=== PATIENT | male | born 1970 | race Caucasian/White ===

== ENCOUNTER 2022-06-08 06:48 | Inpatient (IN) | payer MEDICAID ==
[~2022-06-08] VITALS: Ht 172.7 cm; Wt 85.7 kg
[2022-06-08] VITALS (9 sets, daily range): BP systolic 110–122; BP diastolic 66–81
--- NOTE | 2022-06-08 06:57 | NUR ---
[id number] FROM [facility], FOUND MORE ALTERED THEN USUAL. TEMP: 101 TACHYCARDIC 121. PATIENT NON VERBAL RESPONSIVE TO SOME PAINFUL STIMULI, IN BED 06 ON MONITOR AND POX AWAITING MD HEBERT.
--- NOTE | 2022-06-08 07:01 | NUR ---
EMT AT BEDSIDE FOR EKG
--- NOTE | 2022-06-08 07:07 | NUR ---
BLOOD AND CULTURES COLLECTED AND SENT TO LAB
--- NOTE | 2022-06-08 07:07 | NUR ---
COVID SWAB DONE AND SENT TO LAB
--- NOTE | 2022-06-08 07:09 | NUR ---
URINE COLLECTED AND SENT TO LAB
[2022-06-08] MEDS ORDERED: CEFTRIAXONE 1GM BAG (ER ONLY) 50 ML IV ONE ×2 (07:10→07:30)
--- NOTE | 2022-06-08 07:13 | NUR ---
IV ESTABLISHED RAC #18G S/L ; PATENT AND INTACT
[2022-06-08 07:22] LABS: BASOPHILS % (AUTO) 0.1 % (0.0-2.0); EOSINOPHILS % (AUTO) 1.3 % (0.0-6.0); HEMATOCRIT 26 % (39-51); HEMOGLOBIN 9.1 g/dL (13.5-17.5); LYMPHOCYTES # (AUTO) 0.2 K/uL (0.8-4.8); LYMPHOCYTES % (AUTO) 2.1 % (20.0-44.0); MEAN CORPUSCULAR HGB CONC 35 g/dl (31.0-36.0); MEAN CORPUSCULAR VOLUME 119 fL (80-96); MONOCYTES # (AUTO) 0.6 K/uL (0.1-1.30); MONOCYTES % (AUTO) 6.3 % (2.0-12.0); NEUTROPHILS # (AUTO) 8.5 K/uL (1.8-8.9); NEUTROPHILS % (AUTO) 90.2 % (43.0-81.0); PLATELET COUNT (AUTO) 77 K/uL (150-450); RED BLOOD CELL COUNT(AUTO) 2.19 MIL/uL (4.5-6.0); WHITE BLOOD COUNT (AUTO) 9.4 K/uL (4.3-11.0)
[2022-06-08 07:24] LABS: BILIRUBIN,URINE SMALL (NEGATIVE); COLOR,URINE ORANGE (YELLOW); LEUKOCYTE ESTERASE ,URINE LARGE (NEGATIVE); NITRITE, URINE POSITIVE (NEGATIVE); PROTEIN,URINE >=300 mg/dl (NEGATIVE); UGLUCOSE NEGATIVE (NEGATIVE)
[2022-06-08 07:29] LABS: PH,URINE >8.5 (5.0-8.0)
[2022-06-08] MEDS ORDERED: IV NS 0.9% 1,000 ML BAG IV ONE (07:30)
[2022-06-08 07:36] LABS: RBC,URINE TOO NUMEROUS TO COUN /HPF (0-2); WBC,URINE TOO NUMEROUS TO COUN /HPF (0-3)
[2022-06-08 07:37] LABS: BACTERIA,URINE 1+ /HPF (None Seen); SQUAMOUS EPITHELIAL CELL,UR Few /HPF (None Seen)
[2022-06-08 07:43] LABS: ALANINE AMINOTRANSFERASE 79 U/L (12-78); ALCOHOL, BLOOD < 3 mg/dL (0-0); ALKALINE PHOSPHATASE 87 U/L (46-116); ASPARTATE AMINOTRANSFERASE 96 U/L (15-37); BILIRUBIN,DIRECT 2.8 mg/dL (0.0-0.2); BILIRUBIN,TOTAL 3.6 mg/dL (0.2-1.0); CALCIUM, SERUM 7.9 mg/dL (8.5-10.1); CARBON DIOXIDE 12 mmol/L (21-32); CHLORIDE 96 mmol/L (98-107); GLUCOSE 94 mg/dL (74-106); POTASSIUM 5.8 mmol/L (3.5-5.1); SODIUM SERUM 124 mmol/L (136-145); TOTAL PROTEIN, SERUM 6.4 g/dL (6.4-8.2); UREA NITROGEN, BLOOD 66 mg/dL (7-18)
[2022-06-08 07:49] LABS: CREATININE 3.5 mg/dL (0.6-1.3); SERUM AMMONIA 120 umol/L (11-32)
[2022-06-08 07:50] LABS: THYROID STIMULATING HORMONE 2.119 uIU/mL (0.358-3.74)
[2022-06-08 07:59] LABS: ALBUMIN 1.4 g/dL (3.4-5.0)
[2022-06-08] MEDS ORDERED: FINA5TAB11 PO (08:30)
[2022-06-08] MEDS ORDERED: SENN-18 PO (08:30)
[2022-06-08] MEDS ORDERED: DOCU-141 PO (08:30)
[2022-06-08] MEDS ORDERED: LEVO137T24 PO (08:30)
[2022-06-08] MEDS ORDERED: FOLI0.8T2 PO (08:30)
[2022-06-08] MEDS ORDERED: LACT10SO3 PO (08:30)
[2022-06-08] MEDS ORDERED: THIA100T74 PO (08:30)
[2022-06-08] MEDS ORDERED: SODI100037 GT (08:30)
[2022-06-08] MEDS ORDERED: FOLI0.4T6 PO (08:30)
[2022-06-08] MEDS ORDERED: TAMS-12 PO (08:30)
--- NOTE | 2022-06-08 08:31 | NUR ---
PT TAKEN TO RADIOLOGY
--- NOTE | 2022-06-08 08:54 | NUR ---
called nursing sup regarding pt bed
[2022-06-08 08:59] LABS: BAND % (MANUAL) 10 % (0.0-5.0); LYMPHOCYTES % (MANUAL) 0 % (16-48); MONOCYTES % (MANUAL) 2 % (0-11.0); NEUTROPHILS % (MANUAL) 88 (42-76)
[2022-06-08] MEDS ORDERED: Z GUARD REMEDY 4 OZ OINT TP PRN (09:30)
[2022-06-08] MEDS ORDERED: MAGNESIUM HYDROXIDE 30 ML UDC PO PRN (09:30)
[2022-06-08] MEDS ORDERED: ONDANSETRON HCL/PF 4 MG/2 ML VIAL IVP PRN (09:30)
[2022-06-08] MEDS ORDERED: SODIUM BICARBONATE SYR 50 MEQ/50 ML DISP.SYRIN IV ONE ×2 (09:30→16:00)
[2022-06-08] MEDS ORDERED: MAG HYDROX/AL HYDROX/SIMETH 30 ML UDC PO PRN (09:30)
--- NOTE | 2022-06-08 09:56 | NUR ---
PT SEEN BY [facility], FOR SWALLOW EVAL; PT UNABLE TO PARTICIPATE FOR EVAL.
--- NOTE | 2022-06-08 10:08 | NUR ---
ROOM [facility]
--- NOTE | 2022-06-08 10:20 | NUR ---
PT SEEN BY DR. TESFAYE W/ ORDER FOR ABG NOTED; RT MADE AWARE.
[2022-06-08 10:46] LABS: ABG BASE EXCESS -11.2 mmol/L; ABG PCO2 17.3 mmHg (35.0-45.0); ABG PH 7.434 (7.350-7.450); ABG PO2 79.4 mmHg (75.0-100.0); COHb 0.3 % (0.5-1.5); MetHb 0.3 % (0.0-1.5); O2Hb 94.6 % (94.0-97.0); SITE, ABG Right Radial; VENT MODE, BG Room Air
--- NOTE | 2022-06-08 10:55 | NUR ---
PER DR. TESFAYE, PT NEEDS TO BE ROUTED TO ICU.
[2022-06-08] MEDS: DEXAMETHASONE SOD PHOSPHATE 10 MG/ML VIAL IV SCH (11:29)
[2022-06-08] MEDS ORDERED: DEXAMETHASONE SOD PHOSPHATE 10 MG/ML VIAL ONE (11:29)
[2022-06-08] MEDS ORDERED: SODIUM BICARBONATE SYR 50 MEQ/50 ML DISP.SYRIN ONE (11:35)
[2022-06-08 12:46] LABS: CALCIUM, SERUM 7.6 mg/dL (8.5-10.1); CREATININE 3.2 mg/dL (0.6-1.3); POTASSIUM 5.5 mmol/L (3.5-5.1)
--- NOTE | 2022-06-08 12:58 | NUR ---
BED GIVEN 256 AFTER 1330
[2022-06-08] MEDS: LACTULOSE 10 G/15 ML UDC (PYXIS) PO SCH ×2 (13:00→17:34)
--- NOTE | 2022-06-08 13:46 | NUR ---
PT REPORT GIVEN TO GM SILVA.
[2022-06-08] MEDS ORDERED: VANCOMYCIN 1.25 GM in IV D5W 250 ML IV ONE (14:00)
[2022-06-08] MEDS ORDERED: CEFEPIME 2 GM in IV D5W 100 ML IV SCH (14:00)
--- NOTE | 2022-06-08 14:00 | NUR ---
RN NOTE PT RECEIVED FROM ED STABLE AT THIS TIME REPORT RECEIVED FROM GM OG. PT IS A/OX1 RESPONSIVE ONLY TO LIGHT AND DEEP PAIN. PT IS ON RA SAT 98% TOLERATING WELL NO SIGNS OF DISTRESS OR LABORED BREATHING. FC IS IN PLACE DRAINING URINE TO GRAVITY: HEMATURIA. 1 BOWEL MOVEMENT. IV ACCESS R FA 18G AND L ABDUL 18G. PT PLACED ON TELEMONITOR AND NG TUBE INSERTED AT THIS TIME. PICTURES OF WOUNDS TAKEN AND PLACED IN CHART. WILL CONTINUE TO MONITOR THIS SHIFT.
--- NOTE | 2022-06-08 14:13 | NUR ---
PT TRANSFERRED TO [address] [facility] ACLS PROTOCOL. WARM HANDOFF GIVEN TO GM SILVA.
[2022-06-08 14:59] LABS: ABG BASE EXCESS -9.9 mmol/L; ABG OXYGEN SATURATION 95.5 % (92.0-98.5); ABG PCO2 19.3 mmHg (35.0-45.0); ABG PH 7.436 (7.350-7.450); ABG PO2 81.5 mmHg (75.0-100.0); AaDO2 45.1 mmHg; COHb 0.1 % (0.5-1.5); MetHb 0.2 % (0.0-1.5); O2Hb 95.2 % (94.0-97.0); SITE, ABG Right Radial; VENT MODE, BG ROOM AIR
[2022-06-08] MEDS ORDERED: IV NS 0.9% 250 ML IV PRN (15:00)
--- NOTE | 2022-06-08 15:00 | NUR ---
G ON RA RESULTED TO DR. TESFAYE-NO CHANGES PER MD.
[2022-06-08] MEDS: IV NS 0.9% 1,000 ML IV PRN (15:09)
--- NOTE | 2022-06-08 16:31 | NUR ---
NOTIFIED GM SILVA @ EXT. [phone] THAT US GUIDED PARACENTESIS WILL GET DONE ON FRIDAY PER HEAD OF DIGITAL ADVERTISING & INTEGRATION RAD DR. VITALE
--- NOTE | 2022-06-08 18:59 | NUR ---
RN CLOSING NOTE PT IS IN BED WITH HOB >30. PT IS A/OX1 RESPONSIVE ONLY TO LIGHT AND DEEP PAIN. PT IS ON RA SAT 98% TOLERATING WELL NO SIGNS OF DISTRESS OR LABORED BREATHING. FC IS IN PLACE DRAINING URINE TO GRAVITY -1200ML AND NG IS IN PLACE CLAMPED AND FOR MEDS ONLY AT THIS TIME. 1 BOWEL MOVEMENT. IV ACCESS R AC 18G AND L ABDUL 18G INFUSING WITH NS@90ML/HR. WILL ENDORSE TO DIP UNIT OPERATOR NURSE FOR COREY.
--- NOTE | 2022-06-08 19:10 | NUR ---
RN NOTES RECEIVED REPORT FROM MORNING RN. PATIENT IN BED A/O X0 RESPONSIVE TO TACTILE STIMULI. ON ROOM AIR SATING 94%. WITH NGT INTACT FOR MEDICATION ADMINISTRATION. PATIENT ON NPO EXCEPT MEDS. WITH IV ACCESS AT R AC#18, L AC #18 PATENT FLUSHES WELL. ON IVF NS@ 90CC/HR. WITH MCKEON CATHETER CONNECTED TO URINE BAG DRAINING WELL. ALL SAFETY MEASURES IN PLACE AT ALL TIMES. HOB ELEVATED. CALL LIGHT WITHIN REACH. WILL CLOSELY MONITOR THE PATIENT
[2022-06-08] MEDS: FINASTERIDE (5 MG) 5 MG TABLET PO SCH ×2 (21:32→22:00)
[2022-06-08] MEDS: TAMSULOSIN 0.4 MG CAP.SR.24H PO SCH ×2 (21:32→22:00)
[2022-06-08] MEDS: SENNOSIDES 8.6 MG TABLET PO SCH ×2 (21:32→22:00)
[2022-06-08] MEDS ORDERED: ZOLPIDEM TARTRATE 5 MG TABLET PO PRN (22:00)
--- NOTE | 2022-06-08 22:45 | NUR ---
RN NOTES ALL MEDICATION VIA NGT HELD DUE TO 300 CC GASTRIC RESIDUAL OF COFFEE GROUND. DR LEACH INFORMED. WITH ORDER TO PUT PATIENT ON CONTINUOUS SUCTION.
[2022-06-09] VITALS (25 sets, daily range): BP systolic 101–131; BP diastolic 63–76
[2022-06-09] MEDS: IV NS 0.9% 1,000 ML IV PRN ×2 (01:57→20:17)
[2022-06-09 05:45] LABS: BASOPHILS % (AUTO) 0.1 % (0.0-2.0); EOSINOPHILS % (AUTO) 3.9 % (0.0-6.0); HEMATOCRIT 23 % (39-51); HEMOGLOBIN 8.2 g/dL (13.5-17.5); LYMPHOCYTES # (AUTO) 0.4 K/uL (0.8-4.8); LYMPHOCYTES % (AUTO) 6.8 % (20.0-44.0); MEAN CORPUSCULAR HGB CONC 35 g/dl (31.0-36.0); MEAN CORPUSCULAR VOLUME 119 fL (80-96); MONOCYTES # (AUTO) 0.4 K/uL (0.1-1.30); MONOCYTES % (AUTO) 6.1 % (2.0-12.0); NEUTROPHILS # (AUTO) 5.4 K/uL (1.8-8.9); NEUTROPHILS % (AUTO) 83.1 % (43.0-81.0); PLATELET COUNT (AUTO) 60 K/uL (150-450); WHITE BLOOD COUNT (AUTO) 6.4 K/uL (4.3-11.0)
[2022-06-09 05:54] LABS: CALCIUM, SERUM 7.3 mg/dL (8.5-10.1); CREATININE 2.3 mg/dL (0.6-1.3); MAGNESIUM 2.1 mg/dL (1.8-2.4); PHOSPHORUS 4.7 mg/dL (2.5-4.9); POTASSIUM 4.3 mmol/L (3.5-5.1); RED BLOOD CELL COUNT(AUTO) 1.95 MIL/uL (4.5-6.0); TOTAL PROTEIN, SERUM 5.5 g/dL (6.4-8.2)
[2022-06-09 06:01] LABS: ALBUMIN 1.2 g/dL (3.4-5.0)
--- NOTE | 2022-06-09 06:56 | NUR ---
RN NOTES PATIENT STILL ON ROOM AIR SATING 96%. WITH IV ACCESS AT LAC, R AC G18 PATENT FLUSHES WELL STILL ON NS@90CC/HR. WITH NGT ON CONTINUOS LOW SUCTION WITH 800CC COFFEE GROUND. WITH MCKEON CONNECTED TO URINE BAG DRAINING DARK YELLOW URINE. ALL SAFETY MEASURE IN PLACE AT ALL TIMES. HOB ELEVATED. CALL LIGHT WITHIN REACH FREQUENT VISUAL MONITORING RENDERED. ALL ISOLATION PRECAUTION IN PLACE AT ALL TIMES. WILL ENDORSE TO MORNING SHIFT FOR COREY
[2022-06-09 07:27] LABS: BAND % (MANUAL) 3 % (0.0-5.0); LYMPHOCYTES % (MANUAL) 6 % (16-48); MONOCYTES % (MANUAL) 4 % (0-11.0); NEUTROPHILS % (MANUAL) 87 (42-76)
[2022-06-09] MEDS: THIAMINE HCL 100 MG TABLET PO SCH (08:32)
[2022-06-09] MEDS: FOLIC ACID 1 MG TABLET PO SCH (08:32)
[2022-06-09] MEDS: DOCUSATE SODIUM 100 MG CAPSULE PO SCH (08:32)
[2022-06-09] MEDS: LEVOTHYROXINE SODIUM 25 MCG TABLET PO SCH (08:32)
[2022-06-09] MEDS: LACTULOSE 10 G/15 ML UDC (PYXIS) PO SCH ×3 (08:32→17:33)
[2022-06-09] MEDS: DEXAMETHASONE SOD PHOSPHATE 10 MG/ML VIAL IV SCH (08:32)
[2022-06-09] MEDS ORDERED: PANTOPRAZOLE 40 MG VIAL IV SCH (09:00)
--- NOTE | 2022-06-09 09:39 | NUR ---
ICU/RN NOTE PATIENT'S MEDICATION MAXIPIME/CEFEPIME NOT GIVEN ON TIME DUE TO IT NOT BEING HERE. I CALLED THE PHARMACY AND THE DELIVERED IT NOW. MEDICATION WILL BE GIVEN ACCORDING TO ORDER.
[2022-06-09] MEDS: CEFEPIME 2 GM in IV D5W 100 ML IV SCH ×2 (09:41→21:25)
[2022-06-09] MEDS ORDERED: VANCOMYCIN HCL 0.75 GM in IV D5W 250 ML IV SCH (10:00)
[2022-06-09] MEDS ORDERED: CEFTRIAXONE 1 G in IV D5W 50 ML IV SCH (10:00)
[2022-06-09] MEDS ORDERED: REMDESIVIR (CHARGED) 200 MG, *LOADING DOSE 1 EA in IV NS 0.9% 210 ML IV ONE (11:00)
[2022-06-09] MEDS ORDERED: OCTREOTIDE 1,250 MCG in IV NS 0.9% 247.5 ML IV PRN (13:00)
[2022-06-09 15:31] LABS: HEMOGLOBIN 7.9 g/dL (13.5-17.5)
[2022-06-09 15:45] LABS: ABG OXYGEN SATURATION 94.4 % (92.0-98.5); ABG PCO2 23.1 mmHg (35.0-45.0); ABG PO2 74.1 mmHg (75.0-100.0); COHb 0.2 % (0.5-1.5); MetHb 0.2 % (0.0-1.5); SITE, ABG Right Radial; VENT MODE, BG RA
--- NOTE | 2022-06-09 19:30 | NUR ---
RN OPENING NOTE RECEIVED PATIENT IN BED A/O X1 RESPONSIVE/CONFUSED. ON ROOM AIR SATING 100%. WITH NGT INTACT. PATIENT ON NPO EXCEPT MEDS, BUT WITH CONTINUOUS SUCTION. IV ACCESS AT R AC#18, L AC #18 PATENT FLUSHES WELL. ON IVF NS@ 50ML/HR. WITH MCKEON CATHETER DRAINING YELLOW/MARLENI URINE. ALL SAFETY MEASURES IN PLACE AT ALL TIMES. HOB ELEVATED. CALL LIGHT WITHIN REACH. WILL CLOSELY MONITOR THE PATIENT
--- NOTE | 2022-06-09 19:31 | NUR ---
ICU/RN CLOSING NOTE REPORT GIVEN TO NIGHT NURSE. ALL CARE ENDORSED AND QUESTIONS ANSWERED. PATIENT STABLE.
--- NOTE | 2022-06-09 20:10 | NUR ---
RN NOTE HEATING MEASURE APPLIED FOR LOW TEMP. STARTING WITH HEATED BLANKET
[2022-06-09] MEDS: PANTOPRAZOLE 40 MG VIAL IV SCH (21:25)
[2022-06-09] MEDS: TAMSULOSIN 0.4 MG CAP.SR.24H PO SCH (22:00)
[2022-06-09] MEDS: FINASTERIDE (5 MG) 5 MG TABLET PO SCH (22:00)
[2022-06-09] MEDS: SENNOSIDES 8.6 MG TABLET PO SCH (22:00)
--- NOTE | 2022-06-09 22:07 | NUR ---
ICU/RN: PT ON HIGH DOSE LACTULOSE. SPOKE WITH DR. HAYLEE PERSON TO PLACE FLEXISEAL.
--- NOTE | 2022-06-09 22:15 | NUR ---
RN NOTE FLEXISEAL PLACED. PATIENT RECEIVED HIGH DOSE OF LACTULOSE, STARTING TO HAVE SKIN BREAKDOWN FROM MULTIPLE BM'S
[2022-06-10] VITALS (22 sets, daily range): BP systolic 87–134; BP diastolic 41–101
[2022-06-10] MEDS ORDERED: VANCOMYCIN 1.25 GM in IV D5W 250 ML IV SCH (06:00)
[2022-06-10 06:12] LABS: EOSINOPHILS % (AUTO) 1.8 % (0.0-6.0); HEMATOCRIT 27 % (39-51); HEMOGLOBIN 9.3 g/dL (13.5-17.5); LYMPHOCYTES # (AUTO) 0.6 K/uL (0.8-4.8); LYMPHOCYTES % (AUTO) 9.5 % (20.0-44.0); MEAN CORPUSCULAR HGB CONC 35 g/dl (31.0-36.0); MEAN CORPUSCULAR VOLUME 120 fL (80-96); MONOCYTES # (AUTO) 0.5 K/uL (0.1-1.30); NEUTROPHILS # (AUTO) 5.6 K/uL (1.8-8.9); NEUTROPHILS % (AUTO) 81.7 % (43.0-81.0); RED BLOOD CELL COUNT(AUTO) 2.24 MIL/uL (4.5-6.0); WHITE BLOOD COUNT (AUTO) 6.8 K/uL (4.3-11.0)
[2022-06-10 06:40] LABS: PLATELET COUNT (AUTO) 50 K/uL (150-450)
[2022-06-10 06:42] LABS: CALCIUM, SERUM 7.9 mg/dL (8.5-10.1); CREATININE 1.8 mg/dL (0.6-1.3); POTASSIUM 3.5 mmol/L (3.5-5.1)
[2022-06-10 06:47] LABS: BILIRUBIN,TOTAL 3.4 mg/dL (0.2-1.0); TOTAL PROTEIN, SERUM 6.1 g/dL (6.4-8.2)
[2022-06-10 06:49] LABS: C-REACTIVE PROTEIN 15.2 mg/dL (0.0-0.9)
--- NOTE | 2022-06-10 07:01 | NUR ---
RN NOTE PATIENT IN BED A/O X1 RESPONSIVE/CONFUSED. ON ROOM AIR SATING 100%. WITH NGT INTACT. PATIENT ON NPO. PO MEDS NOT GIVEN DO TO CONTINUOUS SUCTIONING. IV ACCESS AT R AC#18, L AC #18 PATENT FLUSHES WELL. ON IVF NS@ 50ML/HR. WITH MCKEON CATHETER DRAINING YELLOW/MARLENI URINE. FLEXISEAL IN PLACE DRAINING RUNNY BROWN STOOL.ALL SAFETY MEASURES IN PLACE AT ALL TIMES. HOB ELEVATED. CALL LIGHT WITHIN REACH. WILL ENDORSE TO MORNING SHIFT.
[2022-06-10 07:05] LABS: BILIRUBIN,DIRECT 2.6 mg/dL (0.0-0.2)
[2022-06-10 07:42] LABS: ALBUMIN 1.3 g/dL (3.4-5.0)
--- NOTE | 2022-06-10 07:50 | NUR ---
ICU OPENING NOTE RECEIVED PATIENT IN BED A/O X1 RESPONSIVE/CONFUSED. PATIENT SATTING AT 100% ON ROOM AIR. ALL VSS. DIET PATIENT NPO. NG TUBE HOOKED UP TO CONTINUOUS SUCTION. IV ACCESS AT R AC#18, L AC #18 PATENT INTACT AND FLUSHED RUNNING NS 0.9% @50MLS/HR . VOIDING VIA MCKEON CATHETER PATENT AND DRAINING BELOW BLADDER, YELLOW/MARLENI URINE. ALL SAFETY FALL PRECAUTIONS IN PLACE BED LOCK ON, BED ALARM ON, SIDE RAILS UP, BED IN LOWEST POSITION,CALL LIGHT WITHIN REACH. WILL CONTINUE TO MONITOR THE PATIENT.
[2022-06-10] MEDS: DOCUSATE SODIUM 100 MG CAPSULE PO SCH (08:15)
[2022-06-10] MEDS: LACTULOSE 10 G/15 ML UDC (PYXIS) PO SCH ×3 (08:15→17:00)
[2022-06-10] MEDS: THIAMINE HCL 100 MG TABLET PO SCH (08:16)
[2022-06-10] MEDS: LEVOTHYROXINE SODIUM 25 MCG TABLET PO SCH (08:16)
[2022-06-10] MEDS: FOLIC ACID 1 MG TABLET PO SCH (08:16)
--- NOTE | 2022-06-10 08:37 | NUR ---
ICU/RN NOTE HAND RIVETER UNABLE TO WITHDRAW BLOOD AFTER SEVERAL ATTEMPTS SHE WILL SEND SOMEONE ELSE LATER TODAY.
[2022-06-10] MEDS: PANTOPRAZOLE 40 MG VIAL IV SCH ×2 (08:38→21:42)
[2022-06-10] MEDS: DEXAMETHASONE SOD PHOSPHATE 10 MG/ML VIAL IV SCH (08:38)
[2022-06-10] MEDS: CEFEPIME 2 GM in IV D5W 100 ML IV SCH ×2 (08:39→21:51)
--- NOTE | 2022-06-10 09:00 | NUR ---
ICU/RN NOTE [facility] WAS CONTACTED AT ) TO SEE IF CONSENT COULD BE OBTAINED FOR PROCEDURE. FACILITY DID NOT KNOW IF HE EVEN LIVED THERE. PATIENT IS CONFUSED AND UNABLE TO CONSENT FOR HIMSELF.
--- NOTE | 2022-06-10 09:15 | NUR ---
WOUND CARE CONSULT: REVIEWED CHART, NURSING DOCUMENTATION AND PHOTOS WHICH INDICATE SACRAL DEEP TISSUE INJURY (INTACT) WHICH EXENDS TO BUTTOCKS, DISCOLORATION AND DRY ABRASIONS TO LOWER EXTREMITIES, ALL PRESENT ON ADMISSION. RECOMMENDATIONS MADE FOR SKIN PROTECTION. DISCUSSED WITH NURSING STAFF. PT IS ON [facility] LOW AIRLOSS BED. MD IN AGREEMENT WITH PLAN OF CARE.
--- NOTE | 2022-06-10 10:24 | NUR ---
ICU/RN NOTE PATIENT JUST LEFT THE FLOOR WITH THE SURGICAL TEAM FOR AN EGD, PATIENT WAS STABLE WHEN HE LEFT.
--- NOTE | 2022-06-10 10:28 | NUR ---
ICU/RN NOTE CONSENT WAS SIGNED DR LANE AND WITNESSED BY SDAIA Santos RN. PATIENT HAS NO FAMILY. PATIENT UNABLE TO SIGN CONFUSED AND ALTERED.
[2022-06-10] MEDS ORDERED: REMDESIVIR (CHARGED) 100 MG in IV NS 0.9% 80 ML IV SCH (11:00)
--- NOTE | 2022-06-10 12:24 | NUR ---
ICU/RN NOTE DR. OROSCO WAS CONTACTED TO MAKE HER AWARE THAT THE PATIENT'S AST IS 167 AND ALT 110 AND TO SEE IF SHE WANTS TO CONTINUE TO GIVE THE REMDESIVIR.
--- NOTE | 2022-06-10 12:28 | NUR ---
SS consult requested for finding family contacts. Pt. is a 51-year-old male who was admitted to [facility] on 06/08/2022 from [facility] due to sepsis. Pt. is COVID positive. corporate planner called [facility] ([phone]) and spoke with the pt.s community service aide Iliana. Iliana ([phone]) stated that the pt. does not have any family contact. Iliana ([phone]) stated that the pt. was homeless prior to admission at the [facility]. Iliana ([phone]) stated there was no contact on his record.
--- NOTE | 2022-06-10 18:51 | NUR ---
ICU/ HYDROMETER FINISHER NOTE, PATIENT DOWN GRADDED TO TELE ROOM 104. ALL VSS UPON TRANSFER, NO SIGNS OF RESPIATORY DISTRESS PRESENT. REPORT GIVEN AND ALL CARE ENDORSED TO RN.
--- NOTE | 2022-06-10 20:14 | NUR ---
RECRUITER SPECIALIST OPENING NOTE RECEIVED PATIENT IN BED A/O X2 RESPONSIVE/CONFUSED. ON ROOM AIR SATING 100%. WITH NGT INTACT. PATIENT REMAINS ON NPO EXCEPT MEDS. IV ACCESS AT R AC#18, WADE MIDLINE, INTACT, PATENT RUNNING IVF NS @ 50ML/HR. ON TELEMONITORING CURRENTLY READING SR AT 86, WITH MCKENO CATHETER DRAINING YELLOW/MARLENI URINE. ON B SOFT WRIST RESTRAINT, BRUISES NOTED ON BILATERAL ARMS, ALL SAFETY MEASURES IN PLACE AT ALL TIMES. HOB ELEVATED. CALL LIGHT WITHIN REACH. BED IN LOWEST AND LOCKED POSITION, WILL CLOSELY MONITOR THE PATIENT Addendum: 06/11/22 at 0609 by NEAL JOHNSON RN WRONG INPUT
--- NOTE | 2022-06-10 20:15 | NUR ---
SERVICE GREETER OPENING NOTE RECEIVED PATIENT IN BED A/O X2 RESPONSIVE/CONFUSED. ON ROOM AIR SATING 100%. PATIENT REMAINS ON NPO EXCEPT MEDS. IV ACCESS AT R AC#18 AND WADE MIDLINE, INTACT, PATENT RUNNING IVF NS @ 50ML/HR. ON TELEMONITORING CURRENTLY READING SR AT 86, WITH MCKEON CATHETER DRAINING YELLOW/MARLENI URINE. ON RECTAL TUBE IN PLACED. ON B SOFT WRIST RESTRAINT, BRUISES NOTED ON BILATERAL ARMS, ALL SAFETY MEASURES IN PLACE AT ALL TIMES. HOB ELEVATED. CALL LIGHT WITHIN REACH. BED IN LOWEST AND LOCKED POSITION, WILL CLOSELY MONITOR THE PATIENT
[2022-06-10] MEDS: TAMSULOSIN 0.4 MG CAP.SR.24H PO SCH (21:42)
[2022-06-10] MEDS: FINASTERIDE (5 MG) 5 MG TABLET PO SCH (21:42)
[2022-06-10] MEDS: SENNOSIDES 8.6 MG TABLET PO SCH (21:42)
[2022-06-10] MEDS: IV NS 0.9% 1,000 ML IV PRN (21:43)
--- NOTE | 2022-06-10 22:00 | NUR ---
RN NOTE PATIENT RECTAL TUBE GOT DISLODGED, WILL ATTEMPT TO INSERT A NEW ONE.
[2022-06-11] VITALS: BP 120/54
--- NOTE | 2022-06-11 00:10 | NUR ---
RN NOTES INSERTED NEW RECTAL TUBE, PATIENT TOLERATE WELL. KEPT DRY AND CLEAN.
--- NOTE | 2022-06-11 03:00 | NUR ---
RN NOTE NOTED PT IV ACCESS ON R HAND #20G LEAKING AND NOT FLUSHING WELL. REMOVED IV LINE.
[2022-06-11 04:00] VITALS: BP 111/81
[2022-06-11 05:16] LABS: BAND % (MANUAL) 2 % (0.0-5.0)
[2022-06-11 05:17] LABS: EOSINOPHILS % (MANUAL) 2 % (0-4); LYMPHOCYTES % (MANUAL) 11 % (16-48); MONOCYTES % (MANUAL) 6 % (0-11.0); NEUTROPHILS % (MANUAL) 79 (42-76)
[2022-06-11 06:39] LABS: BASOPHILS % (AUTO) 0.1 % (0.0-2.0); EOSINOPHILS % (AUTO) 1.2 % (0.0-6.0); HEMATOCRIT 24 % (39-51); HEMOGLOBIN 8.2 g/dL (13.5-17.5); LYMPHOCYTES % (AUTO) 12.2 % (20.0-44.0); MEAN CORPUSCULAR HGB CONC 35 g/dl (31.0-36.0); MEAN CORPUSCULAR VOLUME 118 fL (80-96); MONOCYTES # (AUTO) 0.5 K/uL (0.1-1.30); MONOCYTES % (AUTO) 6.1 % (2.0-12.0); NEUTROPHILS # (AUTO) 6.8 K/uL (1.8-8.9); NEUTROPHILS % (AUTO) 80.4 % (43.0-81.0); PLATELET COUNT (AUTO) 51 K/uL (150-450); RED BLOOD CELL COUNT(AUTO) 2.01 MIL/uL (4.5-6.0); WHITE BLOOD COUNT (AUTO) 8.5 K/uL (4.3-11.0)
--- NOTE | 2022-06-11 06:45 | NUR ---
RN NOTE HEARED BED ALARM WENT ON, CAME ON PATIENT ROOM FOUND PATIENT SITTING ON THE FLOOR HOOKED WITH SOFT WRIST RESTRAINT ON 1 ARM, ASKED FOR HELP FROM OTHER STAFF NURSE. ASSISTED PATIENT GOING BACK ON THE BED WITH 4 STAFF. ASKED PATIENT HOW HE FELT, HE DENIES PAIN AT THIS TIME, NO VISIBLE INJURY NOTED, MCKEON CATHETER AND RECTAL TUBE REMOVED, KEPT DRY AND COMFORTABLE, RE INSERTED NEW CATHETER AND RECTAL TUBE, REPORTED TO CUSTOMER MARKETING INTERN, HYDROGRAPHIC ENGINEER MD MADE AWARE, INSTRUCTED PATIENT TO CALL FOR ASSISTANCE, VERBALIZED UNDERSTANDING, WILL ENDORSE TO AM SHIFT NURSE FO CONTINUITY OF CARE.
[2022-06-11 06:55] LABS: BILIRUBIN,DIRECT 2.3 mg/dL (0.0-0.2); BILIRUBIN,TOTAL 3.1 mg/dL (0.2-1.0); TOTAL PROTEIN, SERUM 5.8 g/dL (6.4-8.2)
[2022-06-11 07:19] LABS: ALBUMIN 1.2 g/dL (3.4-5.0)
--- NOTE | 2022-06-11 07:30 | NUR ---
RN OPENING NOTE PATIENT IS IN BED, AWAKE, ALERT AND ORIENTED X 1 (SELF). ON ROOM AIR, SATTING AT 98%. SINUS RHYTHM ON SENIOR SUSTAINABILITY CONSULTANT. WITH RECTAL TUBE INTACT. WITH MCKEON CATHETER INTACT. WITH BILATERAL SOFT WRIST RESTRAINTS, ADEQUATE CIRCULATION NOTED. ON NPO EXCEPT MEDS IN PREPARATION FOR US GUIDED PARACENTESIS. WITH RIGHT UPPER ARM MIDLINE INTACT AND INFUSING WITH NS AT 50 ML/HR. DENIES PAIN, BREATHING UNLABORED AND NOT IN ANY FORM OF DISTRESS.BED IS LOCKED IN LOWEST POSITION, 3 SIDE RAILS UP, CALL LIGHT WITHIN REACH. WILL CONTINUE TO MONITOR THROUGHOUT SHIFT.
[2022-06-11 08:00] VITALS: BP 121/77
[2022-06-11] MEDS: LACTULOSE 10 G/15 ML UDC (PYXIS) PO SCH ×3 (08:49→18:42)
[2022-06-11] MEDS: PANTOPRAZOLE 40 MG VIAL IV SCH ×2 (08:49→21:19)
[2022-06-11] MEDS: LEVOTHYROXINE SODIUM 25 MCG TABLET PO SCH (08:50)
[2022-06-11] MEDS: DEXAMETHASONE SOD PHOSPHATE 10 MG/ML VIAL IV SCH (08:50)
[2022-06-11] MEDS: FOLIC ACID 1 MG TABLET PO SCH (08:50)
[2022-06-11] MEDS: DOCUSATE SODIUM 100 MG CAPSULE PO SCH (08:50)
[2022-06-11] MEDS: CEFEPIME 2 GM in IV D5W 100 ML IV SCH ×2 (08:51→21:18)
[2022-06-11] MEDS: THIAMINE HCL 100 MG TABLET PO SCH (08:58)
[2022-06-11 10:52] LABS: NEUTROPHILS % (MANUAL) 84 (42-76)
[2022-06-11 10:53] LABS: BAND % (MANUAL) 2 % (0.0-5.0); LYMPHOCYTES % (MANUAL) 10 % (16-48); MONOCYTES % (MANUAL) 4 % (0-11.0)
[2022-06-11 12:00] VITALS: BP 109/79
[2022-06-11] MEDS ORDERED: ALBUMIN 25% 25 GM in PREMIX 1 EA IV SCH (12:30)
[2022-06-11] MEDS ORDERED: ALBUMIN 25% 50 GM in PREMIX 1 EA IV ONE (13:00)
[2022-06-11] MEDS ORDERED: REMDESIVIR (CHARGED) 100 MG in IV NS 0.9% 100 ML IV SCH (13:30)
[2022-06-11 16:00] VITALS: BP 105/72
[2022-06-11] MEDS ORDERED: ALBUMIN 25% 12.5 GM/50 ML BOTTLE IV ONE (16:00)
--- NOTE | 2022-06-11 16:00 | NUR ---
RN NOTE PARACENTESIS DONE. PERITONEAL FLUID TAKEN OUT WAS 3850 ML. SPECIMEN SENT TO LAB.
--- NOTE | 2022-06-11 19:00 | NUR ---
RN CLOSING NOTE PATIENT REMAINED STABLE THROUGHOUT SHIFT. S/P PARACENTESIS. BREATHING UNLABORED AND NOT IN ANY FORM OF DISTRESS. TOLERATES ROOM AIR. STILL ON WRIST RESTRAINTS DUE TO PATIENT HAVING EPISODES OF TRYING TO PULL OUT LINES AND HOP OUT OF BED. ALL SAFETY PRECAUTIONS IN PLACE. WILL ENDORSE TO TORNADO CHASER NURSE.
--- NOTE | 2022-06-11 19:35 | NUR ---
RN OPENING NOTES RECEIVED PATIENT IN BED, AWAKE, ALERT AND ORIENTED X 1 WITH CONFUSION AND VERBALLY RESPONSIVE. ON ROOM AIR AND PT TOLERATED WELL. IV ACCESS ON WADE MIDLINE INTACT AND PATENT. NO S/S OF INFILTRATIONS. RUNNING NS AT 50 ML/HR. RECTAL TUBE INTACT. MCKEON CATHETER INTACT AND PATENT. DRAINING BY GRAVITY. BILATERAL SOFT WRIST RESTRAINTS, ON NPO EXCEPT MEDS. S/P PARACENTESIS. NO C/O PAIN OR DISCOMFORT. NO ACUTE DISTRESS. ISOLATION PRECAUTION IN PLACE. ALL SAFETY MEASURES IN PLACE. SIDE RAILS UP X3, BED IN LOWEST POSITION AND LOCKED. PLACE CALL LIGHT WITHIN REACH. WILL CONTINUE TO MONITOR.
[2022-06-11 20:00] VITALS: BP 120/79
[2022-06-11] MEDS: FINASTERIDE (5 MG) 5 MG TABLET PO SCH (21:19)
[2022-06-11] MEDS: TAMSULOSIN 0.4 MG CAP.SR.24H PO SCH (21:19)
[2022-06-11] MEDS: SENNOSIDES 8.6 MG TABLET PO SCH (21:19)
[2022-06-11] MEDS: IV NS 0.9% 1,000 ML IV PRN (21:25)
[2022-06-12] VITALS: BP 109/61
[2022-06-12 04:00] VITALS: BP 115/70
--- NOTE | 2022-06-12 06:37 | NUR ---
RN CLOSING NOTES PATIENT IN BED, AWAKE, ALERT AND ORIENTED X 1 WITH CONFUSION AND VERBALLY RESPONSIVE. ON ROOM AIR AND PT TOLERATED WELL. O2 SAT 97%. IV ACCESS ON WADE MIDLINE INTACT AND PATENT. NO S/S OF INFILTRATIONS. RUNNING NS AT 50 ML/HR. RECTAL TUBE INTACT WITH MINIMAL AMOUNT OF BM. MCKEON CATHETER IN PLACE. DRAINING BY GRAVITY. NOTED DARK COLOR URINE WITH SEDIMENT. BILATERAL SOFT WRIST RESTRAINTS. RELEASED Q 2HOURS TO CHECK CIRCULATION. S/P PARACENTESIS. NO C/O PAIN OR DISCOMFORT. NO ACUTE DISTRESS. ALL DUE MEDS GIVEN ORDERED. ISOLATION PRECAUTION IN PLACE. ALL SAFETY MEASURES IN PLACE. SIDE RAILS UP X3, BED IN LOWEST POSITION AND LOCKED. PLACE CALL LIGHT WITHIN REACH. WILL ENDORSE TO MORNING SHIFT NURSE.
--- NOTE | 2022-06-12 07:30 | NUR ---
TELE/RN OPENING NOTE RECEIVED PATIENT IN BED A/O X 1-2 RESPONSIVE/CONFUSED. PATIENT SATTING AT 100% ON ROOM AIR. ALL VSS.SR. DIET PUREE. IV ACCESS AT R UA MIDLINE #18, PATENT INTACT AND FLUSHED RUNNING NS 0.9% @50MLS/HR . VOIDING VIA MCKEON CATHETER PATENT AND DRAINING BELOW BLADDER, YELLOW/MARLENI URINE.BOWEL RECTAL TUBE PATENT AND DRAINING BELOW THE BLADDER. ALL SAFETY FALL PRECAUTIONS IN PLACE BED LOCK ON, BED ALARM ON,BED IN LOWEST POSITION, SIDE RAILS UP, , PATIENT'S ROOM NEAR NURSING STATION, CALL LIGHT WITHIN REACH. WILL CONTINUE TO MONITOR THE PATIENT.
[2022-06-12 08:00] VITALS: BP 141/71
[2022-06-12] MEDS: LACTULOSE 10 G/15 ML UDC (PYXIS) PO SCH ×3 (08:26→16:25)
[2022-06-12] MEDS: CEFEPIME 2 GM in IV D5W 100 ML IV SCH ×2 (08:26→21:34)
[2022-06-12] MEDS: DOCUSATE SODIUM 100 MG CAPSULE PO SCH (08:27)
[2022-06-12] MEDS: FOLIC ACID 1 MG TABLET PO SCH (08:27)
[2022-06-12] MEDS: LEVOTHYROXINE SODIUM 25 MCG TABLET PO SCH (08:27)
[2022-06-12] MEDS: PANTOPRAZOLE 40 MG VIAL IV SCH ×2 (08:27→21:34)
[2022-06-12] MEDS: THIAMINE HCL 100 MG TABLET PO SCH (08:27)
[2022-06-12] MEDS ORDERED: LORAZEPAM INJ 2 MG/ML VIAL IV PRN (10:00)
[2022-06-12 10:27] LABS: BASOPHILS % (AUTO) 0.2 % (0.0-2.0); EOSINOPHILS % (AUTO) 1.2 % (0.0-6.0); HEMATOCRIT 25 % (39-51); HEMOGLOBIN 8.5 g/dL (13.5-17.5); LYMPHOCYTES # (AUTO) 1.3 K/uL (0.8-4.8); LYMPHOCYTES % (AUTO) 15.3 % (20.0-44.0); MEAN CORPUSCULAR HGB CONC 34 g/dl (31.0-36.0); MEAN CORPUSCULAR VOLUME 119 fL (80-96); MONOCYTES # (AUTO) 0.3 K/uL (0.1-1.30); MONOCYTES % (AUTO) 3.5 % (2.0-12.0); NEUTROPHILS % (AUTO) 79.8 % (43.0-81.0); RED BLOOD CELL COUNT(AUTO) 2.09 MIL/uL (4.5-6.0); WHITE BLOOD COUNT (AUTO) 8.8 K/uL (4.3-11.0)
[2022-06-12 10:41] LABS: CALCIUM, SERUM 7.6 mg/dL (8.5-10.1); CREATININE 1.4 mg/dL (0.6-1.3); POTASSIUM 3.7 mmol/L (3.5-5.1)
[2022-06-12 10:47] LABS: ALBUMIN 1.7 g/dL (3.4-5.0); BILIRUBIN,TOTAL 3.1 mg/dL (0.2-1.0)
[2022-06-12 10:55] LABS: PLATELET COUNT (AUTO) 45 K/uL (150-450)
--- NOTE | 2022-06-12 11:00 | NUR ---
TELE/RN NOTE LAB CONTACTED ME WITH A CRITICAL LAB OF [facility]. DOCTOR LUIZ WAS NOTIFIED AND RESPONDED RIGHT AWAY. NO NEW ORDERS WERE REQUESTED BY THE DOCTOR.
[2022-06-12 12:33] VITALS: BP 94/66
[2022-06-12 12:37] LABS: BAND % (MANUAL) 2 % (0.0-5.0); BASOPHILS % (MANUAL) 0 % (0.0-2.0); EOSINOPHILS % (MANUAL) 0 % (0-4); LYMPHOCYTES % (MANUAL) 18 % (16-48); MONOCYTES % (MANUAL) 3 % (0-11.0); NEUTROPHILS % (MANUAL) 77 (42-76)
[2022-06-12 16:00] VITALS: BP 116/84
--- NOTE | 2022-06-12 16:00 | NUR ---
TELE/RN NOTE PATIENT WAS FED A SNACK AND GIVEN WATER. EVERYTHING WAS TOLERATED WELL.
--- NOTE | 2022-06-12 16:41 | NUR ---
TELE/RN NOTE PATIENT RECEIVED A FULL BED BATH, ALL LINEN WAS CHANGED, GOWN WAS CHANGED, MCKEON CATHETER WAS CLEANED, PATIENT RESTING COMFORTABLY ON THE BED. ALL SAFETY FALL PRECAUTIONS IN PLACE, BED IN LOWEST POSITION, BED LOCK ON, BED ALARM ON, SIDE RAILS UP, CALL LIGHT WITHIN REACH. WILL CONTINUE TO MONITOR.
--- NOTE | 2022-06-12 19:05 | NUR ---
TELE/RN CLOSING NOTE PATIENT IN BED A/O X 1-2 RESPONSIVE/CONFUSED. PATIENT SATTING AT 100% ON ROOM AIR. ALL VSS.SR. DIET PUREE. IV ACCESS AT WADE MIDLINE #18, PATENT INTACT AND FLUSHED RUNNING NS 0.9% @50MLS/HR . VOIDING VIA MCKEON CATHETER PATENT AND DRAINING BELOW BLADDER, YELLOW/MARLENI URINE.BOWEL RECTAL TUBE PATENT AND DRAINING BELOW THE BLADDER. ALL SAFETY FALL PRECAUTIONS IN PLACE BED LOCK ON, BED ALARM ON,BED IN LOWEST POSITION, SIDE RAILS UP, , PATIENT'S ROOM NEAR NURSING STATION, CALL LIGHT WITHIN REACH. ALL CARE WAS ENDORSED TO THE PROPERTY CONSULTANT NURSE.
[2022-06-12] MEDS: IV NS 0.9% 1,000 ML IV PRN (19:19)
--- NOTE | 2022-06-12 19:30 | NUR ---
CYBER SPECIAL AGENT OPENING NOTE RECEIVED PATIENT IN BED A/O X2 RESPONSIVE/CONFUSED. ON ROOM AIR SATING 100%. NO S/SXOF ANY RESPIRATORY DISTRESS AT THIS TIME. IV ACCESS AT WADE MIDLINE, INTACT RUNNING IVF NS @ 50ML/HR. ON TELEMONITORING CURRENTLY READING SR, WITH MCKENO CATHETER DRAINING YELLOW/MARLENI URINE. ON RECTAL TUBE IN PLACED. ON B SOFT WRIST RESTRAINT, BRUISES NOTED ON BILATERAL ARMS, ALL SAFETY MEASURES IN PLACE AT ALL TIMES. HOB ELEVATED. CALL LIGHT WITHIN REACH. BED IN LOWEST AND LOCKED POSITION, WILL CLOSELY MONITOR THE PATIENT THROUGHOUT THE SHIFT.
[2022-06-12 20:00] VITALS: BP 110/78
[2022-06-12] MEDS: TAMSULOSIN 0.4 MG CAP.SR.24H PO SCH (21:34)
[2022-06-12] MEDS: SENNOSIDES 8.6 MG TABLET PO SCH (21:34)
[2022-06-12] MEDS: FINASTERIDE (5 MG) 5 MG TABLET PO SCH (21:34)
[2022-06-13] VITALS: BP 115/82
--- NOTE | 2022-06-13 07:43 | NUR ---
RN OPEN NOTE PATIENT IS IN BED A/O X2 RESPONSIVE/CONFUSED. ON ROOM AIR SATING 100% TOLERATING WELL NO S/S OF RESPIRATORY DISTRESS AT THIS TIME. IV ACCESS AT WADE MIDLINE, INTACT RUNNING IVF NS @ 50ML/HR. ON TELEMONITORING CURRENTLY READING SR, WITH MCKEON CATHETER DRAINING YELLOW/MARLENI URINE. ON RECTAL TUBE IN PLACED. ON B SOFT WRIST RESTRAINT, BRUISES NOTED ON BILATERAL ARMS, ALL SAFETY MEASURES IN PLACE AT ALL TIMES. HOB ELEVATED. CALL LIGHT WITHIN REACH. BED IN LOWEST AND LOCKED POSITION, WILL CLOSELY MONITOR THE PATIENT THROUGHOUT THE SHIFT.
[2022-06-13 08:00] VITALS: BP 134/88
[2022-06-13] MEDS: LACTULOSE 10 G/15 ML UDC (PYXIS) PO SCH ×3 (08:06→16:49)
[2022-06-13] MEDS: FOLIC ACID 1 MG TABLET PO SCH (08:06)
[2022-06-13] MEDS: DOCUSATE SODIUM 100 MG CAPSULE PO SCH (08:06)
[2022-06-13] MEDS: CEFEPIME 2 GM in IV D5W 100 ML IV SCH (08:06)
[2022-06-13] MEDS: PANTOPRAZOLE 40 MG VIAL IV SCH ×2 (08:06→21:36)
[2022-06-13] MEDS: LEVOTHYROXINE SODIUM 25 MCG TABLET PO SCH (08:06)
[2022-06-13] MEDS: THIAMINE HCL 100 MG TABLET PO SCH (08:06)
[2022-06-13 08:27] LABS: ALBUMIN 1.7 g/dL (3.4-5.0); BILIRUBIN,TOTAL 2.9 mg/dL (0.2-1.0); CALCIUM, SERUM 8.2 mg/dL (8.5-10.1); CREATININE 1.3 mg/dL (0.6-1.3); POTASSIUM 3.9 mmol/L (3.5-5.1); TOTAL PROTEIN, SERUM 6.1 g/dL (6.4-8.2)
[2022-06-13 09:29] LABS: BASOPHILS % (AUTO) 0.1 % (0.0-2.0); EOSINOPHILS % (AUTO) 1.3 % (0.0-6.0); HEMATOCRIT 28 % (39-51); HEMOGLOBIN 9.5 g/dL (13.5-17.5); LYMPHOCYTES # (AUTO) 1.4 K/uL (0.8-4.8); LYMPHOCYTES % (AUTO) 14.8 % (20.0-44.0); MEAN CORPUSCULAR HGB CONC 34 g/dl (31.0-36.0); MEAN CORPUSCULAR VOLUME 120 fL (80-96); MONOCYTES # (AUTO) 0.5 K/uL (0.1-1.30); MONOCYTES % (AUTO) 4.9 % (2.0-12.0); NEUTROPHILS # (AUTO) 7.3 K/uL (1.8-8.9); NEUTROPHILS % (AUTO) 78.9 % (43.0-81.0); PLATELET COUNT (AUTO) 53 K/uL (150-450); RED BLOOD CELL COUNT(AUTO) 2.34 MIL/uL (4.5-6.0); WHITE BLOOD COUNT (AUTO) 9.3 K/uL (4.3-11.0)
[2022-06-13 12:00] VITALS: BP 125/85
[2022-06-13] MEDS ORDERED: IV D5W 1,000 ML IV PRN (12:30)
[2022-06-13] MEDS: CEFTRIAXONE 2 G in IV D5W 100 ML IV SCH (13:21)
[2022-06-13 16:00] VITALS: BP 129/78
--- NOTE | 2022-06-13 18:22 | NUR ---
RN closing note PATIENT IS IN BED A/O X2 RESPONSIVE/CONFUSED. ON ROOM AIR SATING 100% TOLERATING WELL NO S/S OF RESPIRATORY DISTRESS AT THIS TIME. IV ACCESS AT WADE MIDLINE, INTACT ON TELEMONITORING CURRENTLY READING SR, WITH MCKEON CATHETER DRAINING YELLOW/MARLENI URINE. ON RECTAL TUBE IN PLACED. ON B SOFT WRIST RESTRAINT, BRUISES NOTED ON BILATERAL ARMS, ALL SAFETY MEASURES IN PLACE AT ALL TIMES. HOB ELEVATED. ALL MEDICATIONS WERE ADMINISTERED CALL LIGHT WITHIN REACH. BED IN LOWEST AND LOCKED POSITION, WILL CLOSELY MONITOR THE PATIENT THROUGHOUT THE SHIFT.
--- NOTE | 2022-06-13 19:10 | NUR ---
RN NOTES RECEIVED REPORT FROM MORNING RN. PATIENT IN BED A/2-3 WITH PERIODS OF CONFUSION ON ROOM AIR SATING 96%. WITH IV ACCESS AT R UA#18 MIDLINE FLUSHES WELL. WITH MCKEON CATHETER CONNECTED TO URINE BAG DRAINING WELL. WITH FLEXISEAL IN PLACE. ALL SAFETY MEASURES IN PLACE AT ALL TIMES. WITH BILATERAL SOFT WRIST RESTRAINTS IN PLACE. HOB ELEVATED. CALL LIGHT WITHIN REACH. WILL CLOSELY MONITOR THE PATIENT
[2022-06-13 20:00] VITALS: BP 124/94
[2022-06-13] MEDS: TAMSULOSIN 0.4 MG CAP.SR.24H PO SCH (21:37)
[2022-06-13] MEDS: SENNOSIDES 8.6 MG TABLET PO SCH (21:37)
[2022-06-13] MEDS: FINASTERIDE (5 MG) 5 MG TABLET PO SCH (21:37)
[2022-06-13 21:55] LABS: BAND % (MANUAL) 1 % (0.0-5.0); LYMPHOCYTES % (MANUAL) 11 % (16-48); MONOCYTES % (MANUAL) 8 % (0-11.0); NEUTROPHILS % (MANUAL) 80 (42-76)
[2022-06-14] VITALS: BP 124/83
[2022-06-14 04:00] VITALS: BP 126/83
--- NOTE | 2022-06-14 06:48 | NUR ---
RN NOTES PATIENT REMAINS STABLE NO SIGNIFICANT CHANGES IN HEALTH CONDITION. PATIENT ON MCKEON CONNECTED TO URINE BAG. WITH FLEXI SEAL IN PLACE. IV ACCES PATENT. ALL SAFETY MEASURES IN PLACE AT ALL TIMES HOB ELEVATED. BED ON LOWEST POSITION AND LOCKED BILATERAL SOFT RESTRAINTS IN PLACE. WILL ENDORSED TO MORNING SHIFT FOR COREY
--- NOTE | 2022-06-14 07:15 | NUR ---
RN OPENING NOTES RECEIVED PATIENT IN BED, AWAKE, ALERT AND ORIENTED X 1 CONFUSED AND VERBALLY RESPONSIVE. ON ROOM AIR TOLERATING WELL. IV ACCESS ON WADE MIDLINE INTACT AND PATENT. NO S/S OF INFILTRATIONS. RECTAL TUBE INTACT. MCKEON CATHETER INTACT AND DRAINING UMBER URINE BY GRAVITY. BILATERAL SOFT WRIST RESTRAINTS, NO C/O PAIN OR DISCOMFORT. NO ACUTE DISTRESS. ISOLATION PRECAUTION IN PLACE. ALL SAFETY MEASURES IN PLACE. SIDE RAILS UP X3, BED IN LOWEST POSITION AND LOCKED. PLACE CALL LIGHT WITHIN REACH. WILL CONTINUE TO MONITOR.
[2022-06-14 07:49] LABS: CALCIUM, SERUM 7.5 mg/dL (8.5-10.1); CREATININE 1.2 mg/dL (0.6-1.3); POTASSIUM 3.2 mmol/L (3.5-5.1)
[2022-06-14 08:00] VITALS: BP 119/85
[2022-06-14 08:00] LABS: BASOPHILS % (AUTO) 0.2 % (0.0-2.0); HEMATOCRIT 25 % (39-51); HEMOGLOBIN 8.4 g/dL (13.5-17.5); LYMPHOCYTES # (AUTO) 1.3 K/uL (0.8-4.8); LYMPHOCYTES % (AUTO) 11.8 % (20.0-44.0); MEAN CORPUSCULAR HGB CONC 33 g/dl (31.0-36.0); MEAN CORPUSCULAR VOLUME 120 fL (80-96); MONOCYTES # (AUTO) 0.6 K/uL (0.1-1.30); MONOCYTES % (AUTO) 5.6 % (2.0-12.0); NEUTROPHILS # (AUTO) 9.1 K/uL (1.8-8.9); NEUTROPHILS % (AUTO) 81.4 % (43.0-81.0); PLATELET COUNT (AUTO) 53 K/uL (150-450); RED BLOOD CELL COUNT(AUTO) 2.09 MIL/uL (4.5-6.0); WHITE BLOOD COUNT (AUTO) 11.1 K/uL (4.3-11.0)
[2022-06-14 08:02] LABS: ALBUMIN 1.5 g/dL (3.4-5.0); BILIRUBIN,TOTAL 2.3 mg/dL (0.2-1.0); TOTAL PROTEIN, SERUM 5.6 g/dL (6.4-8.2)
[2022-06-14] MEDS: LEVOTHYROXINE SODIUM 25 MCG TABLET PO SCH (08:11)
[2022-06-14] MEDS: FOLIC ACID 1 MG TABLET PO SCH (08:11)
[2022-06-14] MEDS: DOCUSATE SODIUM 100 MG CAPSULE PO SCH (08:11)
[2022-06-14] MEDS: THIAMINE HCL 100 MG TABLET PO SCH (08:11)
[2022-06-14] MEDS: LACTULOSE 10 G/15 ML UDC (PYXIS) PO SCH ×3 (08:11→17:40)
[2022-06-14] MEDS: PANTOPRAZOLE 40 MG VIAL IV SCH ×2 (08:11→21:00)
[2022-06-14 10:17] LABS: BAND % (MANUAL) 1 % (0.0-5.0); LYMPHOCYTES % (MANUAL) 10 % (16-48); MONOCYTES % (MANUAL) 5 % (0-11.0); NEUTROPHILS % (MANUAL) 84 (42-76)
[2022-06-14] MEDS: POTASSIUM CHLORIDE 20 MEQ POWDER PACKET PO SCH ×2 (11:31→12:17)
[2022-06-14 12:00] VITALS: BP 132/90
[2022-06-14] MEDS: CEFTRIAXONE 2 G in IV D5W 100 ML IV SCH (12:17)
[2022-06-14] MEDS ORDERED: QUETIAPINE FUMARATE 25 MG TABLET PO PRN (12:30)
[2022-06-14 16:00] VITALS: BP 140/85
[2022-06-14] MEDS ORDERED: LORAZEPAM INJ 2 MG/ML VIAL IV PRN (16:00)
[2022-06-14] MEDS: ENSURE ENLIVE CHOC 237 ML CAN PO SCH (17:43)
--- NOTE | 2022-06-14 18:54 | NUR ---
TELE/RN CLOSING NOTE PATIENT IN BED A/O X 1-2 RESPONSIVE/CONFUSED. PATIENT SATTING AT 100% ON ROOM AIR BREATHING HEAVENLY . .SR. DIET PUREE. IV ACCESS AT WADE MIDLINE #18, PATENT INTACT AND FLUSHED . VOIDING VIA MCKEON CATHETER PATENT AND DRAINING YELLOW/MARLENI URINE.BOWEL RECTAL TUBE PATENT AND DRAINING WATERY STOOL ALL SAFETY FALL PRECAUTIONS IN PLACE BED LOCK ON, BED ALARM ON,BED IN LOWEST POSITION, SIDE RAILS UP, , PATIENT'S ROOM NEAR NURSING STATION, CALL LIGHT WITHIN REACH. ALL CARE WAS ENDORSED TO THE BETTING CLERKS NURSE.
--- NOTE | 2022-06-14 19:10 | NUR ---
RN NOTES RECEIVED REPORT FROM MORNING RN. PATIENT IN BED A/2-3 WITH PERIODS OF CONFUSION ON ROOM AIR SATING 96%. WITH IV ACCESS AT R UA#18 MIDLINE FLUSHES WELL. WITH MCKEON CATHETER CONNECTED TO URINE BAG DRAINING WELL. WITH FLEXI SEAL IN PLACE. ON TELE MONITOR WITH NORMAL SINUS RHYTHM. ALL SAFETY MEASURES IN PLACE AT ALL TIMES. WITH BILATERAL SOFT WRIST RESTRAINTS IN PLACE REMOVE EVERY 2 HOURS AND MONITOR FOR CIRCULATION. HOB ELEVATED. CALL LIGHT WITHIN REACH. WILL CLOSELY MONITOR THE PATIENT
[2022-06-14 20:00] VITALS: BP 124/91
[2022-06-14] MEDS: TAMSULOSIN 0.4 MG CAP.SR.24H PO SCH (21:01)
[2022-06-14] MEDS: SENNOSIDES 8.6 MG TABLET PO SCH (21:01)
[2022-06-14] MEDS: FINASTERIDE (5 MG) 5 MG TABLET PO SCH (21:01)
[2022-06-15] VITALS: BP 113/84
[2022-06-15 04:00] VITALS: BP 119/77
--- NOTE | 2022-06-15 06:49 | NUR ---
RN NOTES PATIENT REMAINS STABLE NO SIGNIFICANT CHANGES IN HEALTH CONDITION. ON ROOM AIR SATING 98% NO SOB NO DISTRESS NOTED AT THIS TIME. PATIENT ON MCKEON CONNECTED TO URINE BAG. WITH FLEXI SEAL IN PLACE AND INTACT. IV ACCES PATENT. ALL SAFETY MEASURES IN PLACE AT ALL TIMES HOB ELEVATED. BED ON LOWEST POSITION AND LOCKED BILATERAL SOFT RESTRAINTS IN PLACE. WILL ENDORSED TO MORNING SHIFT FOR COREY
--- NOTE | 2022-06-15 07:27 | NUR ---
RN OPENING NOTES RECEIVED PATIENT RESTING IN BED . ON ROOM AIR WITH NO SOB NO DISTRESS NOTED AT THIS TIME. PATIENT ON MCKEON CONNECTED TO URINE BAG. WITH FLEXI SEAL IN PLACE AND INTACT. IV ACCES PATENT. ALL SAFETY MEASURES IN PLACE AT ALL TIMES HOB ELEVATED. BED ON LOWEST POSITION AND LOCKED BILATERAL SOFT RESTRAINTS IN PLACE DUE TO PATIENT PULLING MCKEON AND FLEXI SEAL, IV LINES.
[2022-06-15 07:36] LABS: HEMATOCRIT 27 % (39-51); MEAN CORPUSCULAR HGB CONC 33 g/dl (31.0-36.0); MEAN CORPUSCULAR VOLUME 121 fL (80-96); RED BLOOD CELL COUNT(AUTO) 2.26 MIL/uL (4.5-6.0); WHITE BLOOD COUNT (AUTO) 10.8 K/uL (4.3-11.0)
[2022-06-15 07:37] LABS: BASOPHILS % (AUTO) 0.3 % (0.0-2.0); EOSINOPHILS % (AUTO) 0.8 % (0.0-6.0); LYMPHOCYTES % (AUTO) 10.9 % (20.0-44.0); MONOCYTES % (AUTO) 5.6 % (2.0-12.0); NEUTROPHILS # (AUTO) 8.9 K/uL (1.8-8.9); NEUTROPHILS % (AUTO) 82.4 % (43.0-81.0); PLATELET COUNT (AUTO) 64 K/uL (150-450)
[2022-06-15 07:38] LABS: LYMPHOCYTES # (AUTO) 1.2 K/uL (0.8-4.8); MONOCYTES # (AUTO) 0.6 K/uL (0.1-1.30)
[2022-06-15 07:47] LABS: ALBUMIN 1.5 g/dL (3.4-5.0); BILIRUBIN,TOTAL 2.2 mg/dL (0.2-1.0); CALCIUM, SERUM 7.7 mg/dL (8.5-10.1); CREATININE 1.3 mg/dL (0.6-1.3); POTASSIUM 3.7 mmol/L (3.5-5.1)
[2022-06-15 08:03] VITALS: BP 118/78
[2022-06-15] MEDS: FOLIC ACID 1 MG TABLET PO SCH (08:21)
[2022-06-15] MEDS: LACTULOSE 10 G/15 ML UDC (PYXIS) PO SCH ×3 (08:21→16:13)
[2022-06-15] MEDS: THIAMINE HCL 100 MG TABLET PO SCH (08:21)
[2022-06-15] MEDS: LEVOTHYROXINE SODIUM 25 MCG TABLET PO SCH (08:21)
[2022-06-15] MEDS: PANTOPRAZOLE 40 MG VIAL IV SCH ×2 (08:21→21:10)
[2022-06-15] MEDS: ENSURE ENLIVE CHOC 237 ML CAN PO SCH ×3 (08:22→16:13)
--- NOTE | 2022-06-15 08:30 | NUR ---
RN NOTE RECEIVED CRITICAL LAB SODIUM 158 AND CHLORIDE 128. PER PROVIDER N.N DC FLUIDS ORDERS FOLLOWED
[2022-06-15] MEDS: DOCUSATE SODIUM 100 MG CAPSULE PO SCH (08:33)
--- NOTE | 2022-06-15 11:28 | NUR ---
RN NOTE OKAY TO RESUME D5W 60MLS/HR PER PROVIDER LYUDMILA
[2022-06-15 12:00] VITALS: BP 119/82
[2022-06-15] MEDS: CEFTRIAXONE 2 G in IV D5W 100 ML IV SCH (12:03)
[2022-06-15] MEDS: IV D5W 1,000 ML IV PRN (12:52)
[2022-06-15 16:00] VITALS: BP 121/81
--- NOTE | 2022-06-15 18:44 | NUR ---
RN CLOSING NOTE PATIENT IN BED A/O X 1-2 RESPONSIVE/CONFUSED. NO CURRENT SINGS OF COMPLAINTS OF SOB IV ACCESS AT WADE MIDLINE #18, PATENT INTACT AND FLUSHED RUNNING D5W AT 60MLS/HR . VOIDING VIA MCKEON CATHETER PATENT AND DRAINING YELLOW/MARLENI URINE.BOWEL RECTAL TUBE PATENT AND DRAINING WATERY STOOL ALL SAFETY FALL PRECAUTIONS IN PLACE BED LOCK ON, BED ALARM ON,BED IN LOWEST POSITION, SIDE RAILS UP, ,RESTRAINTS TO BE RENEWED 0300., CALL LIGHT WITHIN REACH. WILL ENDORSE TO NIGHT NURSE FOR COREY.
--- NOTE | 2022-06-15 19:10 | NUR ---
RN NOTES RECEIVED REPORT FROM MORNING RN. PATIENT IN BED A/O X2 WITH PERIODS OF CONFUSION ON ROOM AIR SATING 96%. WITH IV ACCESS AT R UA#18 MIDLINE FLUSHES WELL. WITH MCKEON CATHETER CONNECTED TO URINE BAG DRAINING WELL. WITH FLEXI SEAL IN PLACE. ON TELE MONITOR WITH NORMAL SINUS RHYTHM. ALL SAFETY MEASURES IN PLACE AT ALL TIMES. WITH BILATERAL SOFT WRIST RESTRAINTS IN PLACE REMOVE EVERY 2 HOURS AND MONITOR FOR CIRCULATION. HOB ELEVATED. CALL LIGHT WITHIN REACH. WILL CLOSELY MONITOR THE PATIENT
[2022-06-15 20:00] VITALS: BP 121/86
[2022-06-15] MEDS: FINASTERIDE (5 MG) 5 MG TABLET PO SCH (21:10)
[2022-06-15] MEDS: TAMSULOSIN 0.4 MG CAP.SR.24H PO SCH (21:10)
[2022-06-15] MEDS: SENNOSIDES 8.6 MG TABLET PO SCH (21:10)
[2022-06-16] VITALS: BP 119/85
[2022-06-16 04:00] VITALS: BP 125/80
[2022-06-16] MEDS: IV D5W 1,000 ML IV PRN ×2 (05:25→17:46)
[2022-06-16 06:42] LABS: BASOPHILS % (AUTO) 0.3 % (0.0-2.0); EOSINOPHILS % (AUTO) 0.9 % (0.0-6.0); HEMATOCRIT 27 % (39-51); HEMOGLOBIN 8.7 g/dL (13.5-17.5); LYMPHOCYTES # (AUTO) 1.5 K/uL (0.8-4.8); LYMPHOCYTES % (AUTO) 12.3 % (20.0-44.0); MEAN CORPUSCULAR HGB CONC 33 g/dl (31.0-36.0); MEAN CORPUSCULAR VOLUME 122 fL (80-96); MONOCYTES # (AUTO) 0.9 K/uL (0.1-1.30); MONOCYTES % (AUTO) 7.5 % (2.0-12.0); NEUTROPHILS # (AUTO) 9.6 K/uL (1.8-8.9); PLATELET COUNT (AUTO) 78 K/uL (150-450); RED BLOOD CELL COUNT(AUTO) 2.18 MIL/uL (4.5-6.0); WHITE BLOOD COUNT (AUTO) 12.1 K/uL (4.3-11.0)
--- NOTE | 2022-06-16 06:50 | NUR ---
RN NOTES PATIENT REMAINS STABLE NO SIGNIFICANT CHANGES IN HEALTH CONDITION. ON ROOM AIR SATING 98% NO SOB NO DISTRESS NOTED AT THIS TIME. PATIENT ON MCKEON CONNECTED TO URINE BAG. WITH FLEXI SEAL IN PLACE AND INTACT. IV ACCES PATENT ON CONTINUOS IVF D5W @ 60CC/HR. ALL SAFETY MEASURES IN PLACE AT ALL TIMES HOB ELEVATED. BED ON LOWEST POSITION AND LOCKED BILATERAL SOFT RESTRAINTS IN PLACE. WILL ENDORSED TO MORNING SHIFT FOR COREY
[2022-06-16] MEDS: ENSURE ENLIVE CHOC 237 ML CAN PO SCH ×3 (07:23→17:24)
[2022-06-16 07:24] LABS: ALBUMIN 1.5 g/dL (3.4-5.0); CALCIUM, SERUM 7.6 mg/dL (8.5-10.1); CREATININE 1.2 mg/dL (0.6-1.3); POTASSIUM 3.5 mmol/L (3.5-5.1); TOTAL PROTEIN, SERUM 6.2 g/dL (6.4-8.2)
[2022-06-16 08:00] VITALS: BP 134/84
[2022-06-16] MEDS: FOLIC ACID 1 MG TABLET PO SCH (08:12)
[2022-06-16] MEDS: DOCUSATE SODIUM 100 MG CAPSULE PO SCH (08:12)
[2022-06-16] MEDS: THIAMINE HCL 100 MG TABLET PO SCH (08:12)
[2022-06-16] MEDS: PANTOPRAZOLE 40 MG VIAL IV SCH ×2 (08:12→21:05)
[2022-06-16] MEDS: LACTULOSE 10 G/15 ML UDC (PYXIS) PO SCH ×3 (08:12→17:00)
[2022-06-16] MEDS: LEVOTHYROXINE SODIUM 25 MCG TABLET PO SCH (08:12)
--- NOTE | 2022-06-16 10:30 | NUR ---
RN NOTE LACTULOSE NOT ADMINISTERED, PER PROVIDER N.N OKAY TO HOLD TODAY DOSE DUE TO AMMONIA LEVEL OF 15 BUT OKAY TO RESUME TOMORROW.
[2022-06-16 12:00] VITALS: BP 114/97
[2022-06-16] MEDS: CEFTRIAXONE 2 G in IV D5W 100 ML IV SCH (12:04)
[2022-06-16 16:00] VITALS: BP 113/75
--- NOTE | 2022-06-16 18:30 | NUR ---
RN NOTE ASKED PATIENT IF HE NEEDED ASSISTANCE TO EAT HIS DINNER PER PATIENT" I AM OKAY RIGHT NOW MAYBE LATER". MEAL TRAY LEFT AT BEDSIDE
--- NOTE | 2022-06-16 19:35 | NUR ---
SPECIALTIES OPERATOR OPENING NOTE RECEIVED PATIENT IN BED A/O X2 RESPONSIVE/CONFUSED. ON ROOM AIR SATING 100%. NO S/SX OF ANY RESPIRATORY DISTRESS AT THIS TIME. IV ACCESS AT WADE MIDLINE, INTACT RUNNING IVF NS @ 60ML/HR. ON TELEMONITORING CURRENTLY READING SR, WITH MCKEON CATHETER DRAINING YELLOW/MARLENI URINE. ON RECTAL TUBE IN PLACED. ON B SOFT WRIST RESTRAINT, BRUISES NOTED ON BILATERAL ARMS, ALL SAFETY MEASURES IN PLACE AT ALL TIMES. HOB ELEVATED. CALL LIGHT WITHIN REACH. BED IN LOWEST AND LOCKED POSITION, WILL CLOSELY MONITOR THE PATIENT THROUGHOUT THE SHIFT.
[2022-06-16 20:00] VITALS: BP 122/81
[2022-06-16] MEDS: SENNOSIDES 8.6 MG TABLET PO SCH (21:05)
[2022-06-16] MEDS: TAMSULOSIN 0.4 MG CAP.SR.24H PO SCH (21:05)
[2022-06-16] MEDS: FINASTERIDE (5 MG) 5 MG TABLET PO SCH (21:06)
[2022-06-17] VITALS: BP 118/73
[2022-06-17 04:00] VITALS: BP 109/67
[2022-06-17] MEDS: IV D5W 1,000 ML IV PRN ×2 (04:04→22:16)
[2022-06-17 06:54] LABS: BASOPHILS % (AUTO) 0.3 % (0.0-2.0); EOSINOPHILS % (AUTO) 0.8 % (0.0-6.0); HEMATOCRIT 29 % (39-51); LYMPHOCYTES # (AUTO) 1.1 K/uL (0.8-4.8); LYMPHOCYTES % (AUTO) 10.1 % (20.0-44.0); MEAN CORPUSCULAR HGB CONC 32 g/dl (31.0-36.0); MEAN CORPUSCULAR VOLUME 126 fL (80-96); MONOCYTES # (AUTO) 0.9 K/uL (0.1-1.30); MONOCYTES % (AUTO) 8.6 % (2.0-12.0); NEUTROPHILS # (AUTO) 8.7 K/uL (1.8-8.9); NEUTROPHILS % (AUTO) 80.2 % (43.0-81.0); PLATELET COUNT (AUTO) 86 K/uL (150-450); RED BLOOD CELL COUNT(AUTO) 2.26 MIL/uL (4.5-6.0); WHITE BLOOD COUNT (AUTO) 10.9 K/uL (4.3-11.0)
--- NOTE | 2022-06-17 06:55 | NUR ---
RAC SPECIALIST CLOSING NOTE PATIENT REMAINS IN BED A/O X2 RESPONSIVE/CONFUSED. ON ROOM AIR SATING 100%. NO S/SX OF ANY RESPIRATORY DISTRESS AT THIS TIME. IV ACCESS AT WADE MIDLINE, INTACT RUNNING IVF NS @ 60ML/HR. ON TELEMONITORING CURRENTLY READING SR AT 86, WITH MCKEON CATHETER DRAINING YELLOW/MARLENI URINE. ON RECTAL TUBE IN PLACED. ON B SOFT WRIST RESTRAINT, ALL SAFETY MEASURES IN PLACE AT ALL TIMES. HOB ELEVATED. ALL DUE MEDS GIVEN, KEPT DRY AND CLEAN, CALL LIGHT WITHIN REACH. BED IN LOWEST AND LOCKED POSITION, WILL ENDORSE TO AM SHIFT NURSE.
[2022-06-17 07:15] LABS: CALCIUM, SERUM 7.5 mg/dL (8.5-10.1)
--- NOTE | 2022-06-17 07:25 | NUR ---
TANK CAR RECONDITIONER OPENING NOTES: RECEIVED PATIENT IN BED, AWAKE, ALERT AND ORIENTED X 2. NO SOB NOTED AND BREATHING EVEN AND UNLABORED. RA WITH OXYGEN SATURATION OF 96%. ON SR WITH HR OF 79 ON TELE MONITOR. IV ACCESS ON RIGHT UPPER ARM MIDLINE INTACT, INFUSING WITH D5W @ 60 ML.HR, IV SITE WITH NO S/S INFILTRATION. MCKEON CATHETER INTACT, DRAINING WITH YELLOW URINE, NO HEMATURIA PRESENT. FLEXISEAL INTACT, WILL EMPTY NEEDED. HOB ELEVATED, BED LOCKED AND IN LOWEST POSITION. CALL LIGHT WITHIN REACH, NOTED WITH GOOD ARM CIRCULATION. ALL SAFETY MEASURES IN PLACE. WILL CONTINUE TO MINOT PATIENT THROUGHOUT SHIFT.
[2022-06-17 07:38] LABS: ALBUMIN 1.3 g/dL (3.4-5.0)
[2022-06-17 08:00] VITALS: BP 107/73
[2022-06-17] MEDS: ENSURE ENLIVE CHOC 237 ML CAN PO SCH ×3 (08:00→17:13)
[2022-06-17] MEDS: LEVOTHYROXINE SODIUM 25 MCG TABLET PO SCH (09:10)
[2022-06-17] MEDS: THIAMINE HCL 100 MG TABLET PO SCH (09:10)
[2022-06-17] MEDS: PANTOPRAZOLE 40 MG VIAL IV SCH ×2 (09:10→21:25)
[2022-06-17] MEDS: FOLIC ACID 1 MG TABLET PO SCH (09:10)
[2022-06-17] MEDS: LACTULOSE 10 G/15 ML UDC (PYXIS) PO SCH ×3 (09:11→17:12)
[2022-06-17] MEDS: DOCUSATE SODIUM 100 MG CAPSULE PO SCH (09:11)
[2022-06-17 12:00] VITALS: BP 109/67
[2022-06-17] MEDS: CEFTRIAXONE 2 G in IV D5W 100 ML IV SCH (13:13)
[2022-06-17 16:00] VITALS: BP 103/72
[2022-06-17 16:35] LABS: EOSINOPHILS % (MANUAL) 3 % (0-4); LYMPHOCYTES % (MANUAL) 11 % (16-48); MONOCYTES % (MANUAL) 8 % (0-11.0); NEUTROPHILS % (MANUAL) 78 (42-76)
--- NOTE | 2022-06-17 18:56 | NUR ---
CERTIFIED LEGAL SECRETARY SPECIALIST CLOSING NOTES: PATINE IN BED, AWAKE, ALERT AND ORIENTED X 3. NO BREATHING DIFFICULTY NOTED. ON SR WITH HR OF 84. MCKEON CATHETER INTACT, EMPTIED 600 ML OF MARLENI COLORED URINE. NO HEMATURIA NOTED. NOTED 80 ML ON HIS FLEXISEAL. ON D5W RUNNING AT 60 ML/HR VIA RIGHT UPPER ARM, SITE PATENT AND INTACT. BED LOCKED AND IN LOWEST POSITION. WILL ENDORSE TO INCOMING NURSE FOR CONTINUATION OF CARE.
--- NOTE | 2022-06-17 19:40 | NUR ---
AUTOMATIC WASHER MECHANIC OPENING NOTE RECEIVED PATIENT IN BED SLEEPING BUT EASILY AROUSABLE TO TOUCH AND VOICE. A/O X2 RESPONSIVE/ PERIOD OF CONFUSION. ON ROOM AIR SATING 100%. NO S/SX OF ANY RESPIRATORY DISTRESS AT THIS TIME. IV ACCESS AT WADE MIDLINE, INTACT RUNNING IVF NS @ 60ML/HR. ON TELEMONITORING CURRENTLY READING SR, WITH MCKEON CATHETER DRAINING YELLOW/MARLENI URINE. ON RECTAL TUBE IN PLACED. ON B SOFT WRIST RESTRAINT, BRUISES NOTED ON BILATERAL ARMS, ALL SAFETY MEASURES IN PLACE AT ALL TIMES. HOB ELEVATED. CALL LIGHT WITHIN REACH. BED IN LOWEST AND LOCKED POSITION, WILL CLOSELY MONITOR THE PATIENT THROUGHOUT THE SHIFT.
[2022-06-17 20:00] VITALS: BP 112/73
[2022-06-17] MEDS: FINASTERIDE (5 MG) 5 MG TABLET PO SCH (21:25)
[2022-06-17] MEDS: SENNOSIDES 8.6 MG TABLET PO SCH (21:25)
[2022-06-17] MEDS: TAMSULOSIN 0.4 MG CAP.SR.24H PO SCH (21:25)
[2022-06-18] VITALS: BP 114/71
[2022-06-18 04:00] VITALS: BP 107/71
--- NOTE | 2022-06-18 07:02 | NUR ---
STEAM CONDITIONING OPERATOR CLOSING NOTE PATIENT REMAINS IN BED A/O X2 RESPONSIVE/CONFUSED. ON ROOM AIR SATING 100%. NO S/SX OF ANY RESPIRATORY DISTRESS AT THIS TIME. IV ACCESS AT WADE MIDLINE, INTACT RUNNING IVF NS @ 60ML/HR. ON TELEMONITORING CURRENTLY READING SR AT 84, WITH MCKEON CATHETER DRAINING YELLOW/MARLENI URINE. D/C RECTAL TUBE, ON B SOFT WRIST RESTRAINT, ALL SAFETY MEASURES IN PLACE AT ALL TIMES. HOB ELEVATED. ALL DUE MEDS GIVEN, KEPT DRY AND CLEAN, CALL LIGHT WITHIN REACH. BED IN LOWEST AND LOCKED POSITION, AWAITING FOR HEAD START ASSISTANT TEACHER BY AMBULANCE DISCHARGE PT TO [facility]. WILL ENDORSE TO AM SHIFT NURSE.
--- NOTE | 2022-06-18 07:25 | NUR ---
SOUND EDITOR OPENING NOTE RECEIVED PATIENT IN BED AWAKE. A/O X2 RESPONSIVE/ PERIOD OF CONFUSION. ON ROOM AIR SATING 100%. NO S/SX OF ANY RESPIRATORY DISTRESS AT THIS TIME. IV ACCESS AT WADE MIDLINE, INTACT RUNNING IVF NS @ 60ML/HR. ON TELEMONITORING CURRENTLY READING SR, WITH MCKEON CATHETER DRAINING YELLOW/MARLENI URINE. ON RECTAL TUBE IN PLACED. ON B SOFT WRIST RESTRAINT, BRUISES NOTED ON BILATERAL ARMS, ALL SAFETY MEASURES IN PLACE AT ALL TIMES. HOB ELEVATED. CALL LIGHT WITHIN REACH. BED IN LOWEST AND LOCKED POSITION, PER REPORT READY FOR DISCHARGE THIS MORNING AROUND 8 AM.
--- NOTE | 2022-06-18 08:42 | NUR ---
SPECTACLE TRUER NOTES: PT AWAKE ALERT X 2 ABLE TO MAKE NEEDS KNOWN, CALLED [facility] REPORT GIVEN TO SHEBA WORRELL , KEPT MIDLINE PT TO CONTINUE IV ROCEPHIN FOR TOTAL 10 DAYS.MCKEON CATHETER IN PLACE DRAINING WELL YELLOW CLEAR URINE.RECTAL TUBE WAS REMOVED.[facility] CAME AND PICKED U THE PT IN STABLE CONDITION
== END 2022-06-18 08:42 | DRG 720 ==
LOC: ER 06:55 → TRANSITION 09:05 → TELE1 10:35 → ICU 12:56 → TELE1 06-10 18:31
PROVIDERS: ADMIT Nurse Practitioner Acute Care; ATTEND Nurse Practitioner Acute Care
PROC: XW033E5 Introduction of Remdesivir Anti-infective into Peripheral Vein, Percutaneous Approach, New Technology Group 5 (ICD-10-PCS; 2022-06-09)
PROC: 05HD33Z Insertion of Infusion Device into Right Cephalic Vein, Percutaneous Approach (ICD-10-PCS; 2022-06-10)
PROC: 0W9G3ZZ Drainage of Peritoneal Cavity, Percutaneous Approach (ICD-10-PCS; principal; 2022-06-12)
DX: A41.89 Other specified sepsis (principal); J96.01 Acute respiratory failure with hypoxia; K76.7 Hepatorenal syndrome; N17.0 Acute kidney failure with tubular necrosis; J12.82 Pneumonia due to coronavirus disease 2019; E43 Unspecified severe protein-calorie malnutrition; U07.1 COVID-19; D68.9 Coagulation defect, unspecified; G92.8 Other toxic encephalopathy; T83.518A Infection and inflammatory reaction due to other urinary catheter, initial encounter; N30.00 Acute cystitis without hematuria; E86.0 Dehydration; E87.1 Hypo-osmolality and hyponatremia; K72.90 Hepatic failure, unspecified without coma; K74.60 Unspecified cirrhosis of liver; R18.8 Other ascites; Z79.899 Other long term (current) drug therapy; J15.9 Unspecified bacterial pneumonia; E87.5 Hyperkalemia; R74.01 Elevation of levels of liver transaminase levels; D69.59 Other secondary thrombocytopenia; E88.09 Other disorders of plasma-protein metabolism, not elsewhere classified; Y84.6 Urinary catheterization as the cause of abnormal reaction of the patient, or of later complication, without mention of misadventure at the time of the procedure; Y92.129 Unspecified place in nursing home as the place of occurrence of the external cause; K92.2 Gastrointestinal hemorrhage, unspecified; E83.51 Hypocalcemia; E87.2 Acidosis; E03.9 Hypothyroidism, unspecified; I10 Essential (primary) hypertension; Z79.890 Hormone replacement therapy; B96.4 Proteus (mirabilis) (morganii) as the cause of diseases classified elsewhere; K20.90 Esophagitis, unspecified without bleeding; K76.6 Portal hypertension; D63.8 Anemia in other chronic diseases classified elsewhere; E87.0 Hyperosmolality and hypernatremia; F10.10 Alcohol abuse, uncomplicated; Y90.9 Presence of alcohol in blood, level not specified; K70.9 Alcoholic liver disease, unspecified; A41.59 Other Gram-negative sepsis; E87.6 Hypokalemia; K80.20 Calculus of gallbladder without cholecystitis without obstruction; N40.0 Benign prostatic hyperplasia without lower urinary tract symptoms
CPT/HCPCS: 36410; 36415; 36600; 70450-TC; 71045-TC; 76942-TC; 80048-TC; 80053-TC; 80076-TC; 81001; 82140-TC; 82728-TC; 82803-TC; 83605-TC; 83615-TC; 83735-TC; 83880; 84100-TC; 84443-TC; 84484-TC; 85025-TC; 85027-TC; 85378-TC; 85610-TC; 85730-TC; 86140-TC; 86704; 86803; 87040-TC; 87070-TC; 87081-TC; 87086-TC; 87186-TC; 87340; 87806; 89051-TC; 92526; 92611-TC; A4216; A6403; C9113; G0378; G0480; J0692; J0696; J1100; J2060; J2354; J2405; J2704; J3370; J3490; J7030; J7040; J7050; J7060; J7070; P9047

== ENCOUNTER 2022-07-24 13:59 | Inpatient (IN) | payer MEDICAID ==
[~2022-07-24] VITALS: Ht 185.4 cm; Wt 100.7 kg
[~2022-07-24 13:59] MED LIST: DOCU-141 PO; FINA5TAB11 PO; FOLI0.4T6 PO; FOLI0.8T2 PO; LACT10SO3 PO; LEVO137T24 PO; SENN-18 PO; SODI100037 GT; TAMS-12 PO; THIA100T74 PO
--- NOTE | 2022-07-24 14:45 | NUR ---
PHLEB AT BEDSIDE FOR BLOOD DRAW
[2022-07-24 14:56] LABS: BASOPHILS % (AUTO) 0.9 % (0.0-2.0); HEMATOCRIT 31 % (39-51); HEMOGLOBIN 10.3 g/dL (13.5-17.5); LYMPHOCYTES # (AUTO) 0.9 K/uL (0.8-4.8); LYMPHOCYTES % (AUTO) 20.1 % (20.0-44.0); MEAN CORPUSCULAR HGB CONC 33 g/dl (31.0-36.0); MEAN CORPUSCULAR VOLUME 99 fL (80-96); MONOCYTES # (AUTO) 0.8 K/uL (0.1-1.30); MONOCYTES % (AUTO) 16.8 % (2.0-12.0); NEUTROPHILS # (AUTO) 2.8 K/uL (1.8-8.9); NEUTROPHILS % (AUTO) 60.2 % (43.0-81.0); PLATELET COUNT (AUTO) 163 K/uL (150-450); RED BLOOD CELL COUNT(AUTO) 3.11 MIL/uL (4.5-6.0); WHITE BLOOD COUNT (AUTO) 4.6 K/uL (4.3-11.0)
--- NOTE | 2022-07-24 14:58 | NUR ---
PT SIGNED CONSENT FORM FOR PARACENTESIS PROCEDURE; FORM PLACED IN THE CHART
[2022-07-24] MEDS ORDERED: AMIN30LI2 PO (15:00)
[2022-07-24] MEDS ORDERED: NA P133E RC (15:00)
[2022-07-24] MEDS ORDERED: MAGN400O6 PO (15:00)
[2022-07-24] MEDS ORDERED: HONE15GE TP (15:00)
[2022-07-24] MEDS ORDERED: ACET-2605 PO (15:00)
[2022-07-24] MEDS ORDERED: BISA10SU11 RC (15:00)
[2022-07-24] MEDS ORDERED: ASCO-352 PO (15:00)
[2022-07-24] MEDS ORDERED: ACET-868 PO (15:00)
--- NOTE | 2022-07-24 15:01 | NUR ---
SPOKE W/ MEAT STRINGER REGARDING US-GUIDED PARACENTESIS; PER MEAT STRINGER, RADIOLOGIST NOT AVAILABLE FOR PROCEDURE TODAY AND WILL DO IT TOMORROW IN AM.
[2022-07-24 15:12] LABS: CALCIUM, SERUM 7.6 mg/dL (8.5-10.1); CREATININE 0.9 mg/dL (0.6-1.3); POTASSIUM 3.9 mmol/L (3.5-5.1)
[2022-07-24 15:26] LABS: LYMPHOCYTES % (MANUAL) 22 % (16-48); MONOCYTES % (MANUAL) 18 % (0-11.0); NEUTROPHILS % (MANUAL) 60 (42-76)
--- NOTE | 2022-07-24 15:31 | NUR ---
COVID SWAB COLLECTED AND SENT TO LAB
--- NOTE | 2022-07-24 17:41 | NUR ---
pt provided w/ dinner tray, beto well
--- NOTE | 2022-07-24 18:20 | NUR ---
PT REPORT GIVEN TO GM MCMILLAN
--- NOTE | 2022-07-24 18:59 | NUR ---
PT TRANSFERRED TO [facility] [facility]. WARM HANDOFF GIVEN TO RN ASSIGNED
[2022-07-24 19:00] VITALS: BP 131/88
--- NOTE | 2022-07-24 19:02 | NUR ---
MS RN ADMITTING NOTES PT ADMITTED TO UNIT [facility]IA [facility] AT 1855 BY King OG. PT IS A/O X 3-4. ABLE TO MAKE NEEDS KNOWN. ORIENTED TO STAFF AND UNIT. V/S TAKEN AND RECORDED. ON ROOM AIR, TOLERATING WELL, NO SOB NOTED. PT WITH IV ACCESS NOTED ON RAC G#20 INTACT, PATENT AND FLUSHES WELL. SAFETY PRECAUTIONS IMPLEMENTED: BED PLACED ON LOWEST LOCKED POSITION, HOB ELEVATED, SIDE RAILS UP X2, CALL LIGHT AND TRAY TABLE WITHIN REACH OF PT. WILL ENDORSE TO CUFF SETTER OVERLOCK RN (THADDEUS) TO COMPLETE THE ADMISSION PROCESS.
--- NOTE | 2022-07-24 21:09 | NUR ---
MS RN OPENING NOTES: RECEIVED PATIENT AWAKE IN BED, BED IN LOW POSITION, CALLL LIGHTS WITHIN REACH, NOC OMPLAIN OF PAIN AND DISCOMFORT AT THIS TIME, ON ROOM AIR SATURATING WELL, PATIENT WAS NEWLY ADMITTED NOTIFEID DR PRASANTH NAM FOR ORDERS AWAITING FOR RESPONSE. WILL CONTINUE TO MONITOR.
[2022-07-24] MEDS ORDERED: Z GUARD REMEDY 4 OZ OINT TP PRN (22:00)
[2022-07-24] MEDS ORDERED: BISACODYL SUPP (10 MG) 10 MG/SUPP.RECT SUPP.RECT RC PRN (22:00)
[2022-07-24] MEDS ORDERED: ONDANSETRON HCL/PF 4 MG/2 ML VIAL IVP PRN (22:00)
[2022-07-24 23:45] LABS: BILIRUBIN,DIRECT 0.4 mg/dL (0.0-0.2); BILIRUBIN,TOTAL 0.6 mg/dL (0.2-1.0); TOTAL PROTEIN, SERUM 6.5 g/dL (6.4-8.2)
[2022-07-24 23:47] LABS: ALBUMIN 1.3 g/dL (3.4-5.0)
[2022-07-25] MEDS: SENNOSIDES 8.6 MG TABLET PO SCH ×2 (00:10→22:00)
--- NOTE | 2022-07-25 02:10 | NUR ---
RN NOTES: PATIENT ADMITTED TO MED SURG, SKIN ASSESSMENT DONE, AND DOCUMENTED, INVENTORIES DONE, PATIENT WAS PLACED IN BED COMFORTABLY, ORIENTED TO ROOM REMIND O USE THE CALL LIGHTS WHEN NEEDED ASSISTANCE KEPT CLEAN AND DRY ALL NEEDS MET WILL CONTINUE TO MONITOR.
--- NOTE | 2022-07-25 06:44 | NUR ---
RN CLOSING NOTES: PATIENT SLEEP IN BED COMFORTABLY, AROUSABLE TO VERBAL STIMULI, BED IN LOW POSITION, CALL LIGHTS WITHIN REACH, NO COMPLAIN OF PAIN AND DISCOMFORT AT THIS TIME, ON MCKEON CATHETER-500CC URINE OUTPUT, ON ROOM AIR SATURATING WELL, PATIENT IS A/OX4 ABLE TO MAKE NEEDS KNOWN, NPO WITH SCHEDULE PARACENTESIS, PATIENT KEPT CLEAN AND DRY ALL NEEDS MET, ENDORSE TO INCOMING SHIFT.
[2022-07-25 06:50] LABS: BASOPHILS # (AUTO) 0.1 K/uL (0.0-0.2); BASOPHILS % (AUTO) 1.1 % (0.0-2.0); EOSINOPHILS % (AUTO) 1.8 % (0.0-6.0); HEMATOCRIT 31 % (39-51); HEMOGLOBIN 10.3 g/dL (13.5-17.5); LYMPHOCYTES % (AUTO) 20.4 % (20.0-44.0); MEAN CORPUSCULAR HGB CONC 34 g/dl (31.0-36.0); MEAN CORPUSCULAR VOLUME 99 fL (80-96); MONOCYTES # (AUTO) 0.8 K/uL (0.1-1.30); MONOCYTES % (AUTO) 16.4 % (2.0-12.0); NEUTROPHILS % (AUTO) 60.3 % (43.0-81.0); PLATELET COUNT (AUTO) 180 K/uL (150-450); RED BLOOD CELL COUNT(AUTO) 3.09 MIL/uL (4.5-6.0)
[2022-07-25 07:16] LABS: BILIRUBIN,TOTAL 0.6 mg/dL (0.2-1.0); CALCIUM, SERUM 7.6 mg/dL (8.5-10.1); CREATININE 0.8 mg/dL (0.6-1.3); MAGNESIUM 1.7 mg/dL (1.8-2.4); PHOSPHORUS 3.6 mg/dL (2.5-4.9); POTASSIUM 4.1 mmol/L (3.5-5.1); TOTAL PROTEIN, SERUM 6.4 g/dL (6.4-8.2)
[2022-07-25 07:21] LABS: ALBUMIN 1.3 g/dL (3.4-5.0)
[2022-07-25] MEDS ORDERED: LEVOTHYROXINE SODIUM 137 MCG TABLET PO SCH (07:30)
--- NOTE | 2022-07-25 07:30 | NUR ---
MS RN OPENING NOTES RECEIVED PATIENT ON BED AWAKE AND A/O X4. ON ROOM AIR TOLERATING WELL. NO SOB NOTED. NOT IN DISTRESS. WITH NO COMPLAINTS OF PAIN AT THIS TIME. WITH ASCITES AND SCHEDULED FOR US GUIDED PARACENTESIS TODAY WITH CONSENT SIGNED ON CHART. WITH IV ACCESS AT THE RIGHT AC G20 SALINE LOCKED, PATENT AND INTACT. SAFETY MEASURES IN PLACED. CALL LIGHT WITHIN REACH. BED ON LOWER LOCKED POSITION, SIDE RAILS UP X2. WILL CONTINUE TO MONITOR.
[2022-07-25 08:03] VITALS: BP 140/84
[2022-07-25] MEDS ORDERED: MAGNESIUM OXIDE 400 MG TABLET PO ONE (09:00)
[2022-07-25] MEDS: LACTULOSE 10 G/15 ML UDC (PYXIS) PO SCH ×4 (09:00→17:46)
[2022-07-25] MEDS: THIAMINE HCL 100 MG TABLET PO SCH (10:04)
[2022-07-25] MEDS: DOCUSATE SODIUM 100 MG CAPSULE PO SCH (10:04)
[2022-07-25] MEDS: ASCORBIC ACID 500 MG TABLET PO SCH (10:04)
[2022-07-25] MEDS ORDERED: LEVOTHYROXINE SODIUM 25 MCG TABLET PO SCH (10:15)
[2022-07-25] MEDS ORDERED: ALBUMIN 25% 12.5 GM in PREMIX 1 EA IV PRN (10:30)
[2022-07-25] MEDS: ALBUMIN 25% 12.5 GM in PREMIX 1 EA IV SCH ×5 (11:00→15:41)
--- NOTE | 2022-07-25 11:00 | NUR ---
RN NOTES S/P PARACENTESIS WITH 9.6ML PERITONEAL FLUID REMOVED. TO GIVE ALBUMIN PER DOCTOR'S ORDER. WILL MONITOR.
[2022-07-25] MEDS: LEVOTHYROXINE SODIUM 25 MCG TABLET PO SCH (11:02)
[2022-07-25] MEDS ORDERED: ALBUMIN 25% 12.5 GM/50 ML BOTTLE IV ONE (12:00)
[2022-07-25 14:00] LABS: EOSINOPHILS % (MANUAL) 3 % (0-4); LYMPHOCYTES % (MANUAL) 22 % (16-48); MONOCYTES % (MANUAL) 10 % (0-11.0); NEUTROPHILS % (MANUAL) 65 (42-76)
[2022-07-25] MEDS ORDERED: TAMSULOSIN 0.4 MG CAP.SR.24H PO SCH (18:00)
[2022-07-25] MEDS ORDERED: FINASTERIDE (5 MG) 5 MG TABLET PO SCH (18:00)
--- NOTE | 2022-07-25 18:29 | NUR ---
MS RN CLOSING NOTES PATIENT ON BED AWAKE AND A/O X4. ON ROOM AIR TOLERATING WELL. NO SOB NOTED. NOT IN DISTRESS. WITH NO COMPLAINTS OF PAIN AT THIS TIME. S/P PARACENTESIS TOLERATED WELL. WITH IV ACCESS AT THE RIGHT AC G20 SALINE LOCKED, PATENT AND INTACT. DUE MEDS GIVEN. SAFETY MEASURES IN PLACED. CALL LIGHT WITHIN REACH. BED ON LOWER LOCKED POSITION, SIDE RAILS UP X2. WILL ENDORSE TO NEXT SHIFT FOR COREY.
--- NOTE | 2022-07-25 19:31 | NUR ---
MS RN OPENING NOTES: RECEIVED PATIENT AWAKE IN BED, BED IN LOW POSITION, CALL LIGHTS WITHIN REACH, NO COMPLAIN OF PAIN AND DISCOMFORT A THIS TIME, ON ROOM AIR SATURATING WELL, PATIENT IS A/OX4 ABLE TO MAKE NEEDS KNOWN, S/P PARACENTESIS WITH 9.6 LTRS OUT,IV LINE AT RAC#20SL, ON MCKEON CATHETER, DRAINING AND PATENT, PATIENT KEPT CLEAN AND DRY ALL NEEDS MET WILL CONTINUE TO MONITOR
[2022-07-25 20:00] VITALS: BP 101/62
[2022-07-25 20:09] VITALS: BP 101/62
--- NOTE | 2022-07-25 22:24 | NUR ---
RN NOTES: PATIENT REFUSED ROUTINE STOOL SOFTENER SENNA 17.2MG, OFFERED 3X EXPLAIN RISK AND BENEFITS PATIENT STILL REFUSED TO TAKE.
--- NOTE | 2022-07-26 06:31 | NUR ---
MS RN CLOSING NOTES: PATIENT SLEEP IN BED COMFORTABLY, BED IN LOW POSITION, CALL LIGHTS WITHIN REACH, ON ROOM AIR SATURATING WELL, PATIENT IS A/OX4 ABLE TO MAKE NEEDS KNOWN, S/P PARACENTESIS WITH 9.6LTR OUTPUT, NO BLEEDING WAS OBSERVED, ON MCKEON CATHETER-650CC, URINE OUTPUT, PATIENT KEPT CLEAN AND DRY ALL NEEDS MET ENDORSE TO INCOMING SHIFT.
[2022-07-26 06:43] LABS: BASOPHILS % (AUTO) 0.8 % (0.0-2.0); EOSINOPHILS % (AUTO) 1.7 % (0.0-6.0); HEMATOCRIT 29 % (39-51); HEMOGLOBIN 9.9 g/dL (13.5-17.5); LYMPHOCYTES % (AUTO) 19.1 % (20.0-44.0); MEAN CORPUSCULAR HGB CONC 34 g/dl (31.0-36.0); MEAN CORPUSCULAR VOLUME 99 fL (80-96); MONOCYTES # (AUTO) 0.7 K/uL (0.1-1.30); MONOCYTES % (AUTO) 12.7 % (2.0-12.0); NEUTROPHILS # (AUTO) 3.4 K/uL (1.8-8.9); NEUTROPHILS % (AUTO) 65.7 % (43.0-81.0); PLATELET COUNT (AUTO) 164 K/uL (150-450); RED BLOOD CELL COUNT(AUTO) 2.97 MIL/uL (4.5-6.0); WHITE BLOOD COUNT (AUTO) 5.2 K/uL (4.3-11.0)
[2022-07-26 07:13] LABS: CALCIUM, SERUM 7.6 mg/dL (8.5-10.1); CREATININE 0.6 mg/dL (0.6-1.3); MAGNESIUM 1.6 mg/dL (1.8-2.4); POTASSIUM 3.5 mmol/L (3.5-5.1)
[2022-07-26] MEDS ORDERED: MAGNESIUM OXIDE 400 MG TABLET PO ONE (07:30)
--- NOTE | 2022-07-26 07:30 | NUR ---
MS RN OPENING NOTES RECEIVED PATIENT ON BED AWAKE AND A/O X4. ON ROOM AIR TOLERATING WELL. NO SOB NOTED. NOT IN DISTRESS. WITH NO COMPLAINTS OF PAIN AT THIS TIME. WITH IV ACCESS AT THE RIGHT AC G20 SALINE LOCKED, PATENT AND INTACT. SAFETY MEASURES IN PLACED. CALL LIGHT WITHIN REACH. BED ON LOWER LOCKED POSITION, SIDE RAILS UP X2. WILL CONTINUE TO MONITOR.
[2022-07-26 08:00] VITALS: BP 101/74
[2022-07-26] MEDS: THIAMINE HCL 100 MG TABLET PO SCH (08:35)
[2022-07-26] MEDS: ASCORBIC ACID 500 MG TABLET PO SCH (08:35)
[2022-07-26] MEDS: DOCUSATE SODIUM 100 MG CAPSULE PO SCH (08:36)
[2022-07-26] MEDS: LEVOTHYROXINE SODIUM 25 MCG TABLET PO SCH (08:36)
[2022-07-26] MEDS: LACTULOSE 10 G/15 ML UDC (PYXIS) PO SCH ×2 (09:00→13:00)
--- NOTE | 2022-07-26 12:15 | NUR ---
RN NOTE CALLED [facility] FOR [facility] BUT NO ANSWER. SPOKE TO ELLIE THE TOP DYEING MACHINE TENDER AND GAVE [facility] CONTACT NUMBER FOR THEM TO CALL TO GIVE REPORT.
--- NOTE | 2022-07-26 12:40 | NUR ---
GRAPHIC USER INTERFACE DESIGNER NOTES PATIENT WAS PICKED BY BY AMBULANCE PERSONNEL FOR DISCHARGE BACK TO [facility]. DISCHARGE INSTRUCTION AND MEDICATION LIST TO CONTINUE PROVIDED TO THE PATIENT. PATIENT VERBALIZED UNDERSTANDING. DISCHARGE FORM AND BELONGINGS LIST FORM SIGNED BY THE PATIENT. IV LINE AND NAME WRIST BAND REMOVED. PATIENT LEFT IN STABLE CONDITION. MD AND CHARGE NURSE ARE AWARE OF THE DISCHARGE.
== END 2022-07-26 12:55 | DRG 280 ==
LOC: ER 14:01 → MED 18:30
PROVIDERS: ADMIT Internal Medicine; ATTEND Internal Medicine
PROC: 0W9G3ZZ Drainage of Peritoneal Cavity, Percutaneous Approach (ICD-10-PCS; principal; 2022-07-25)
DX: K70.31 Alcoholic cirrhosis of liver with ascites (principal); E43 Unspecified severe protein-calorie malnutrition; D69.59 Other secondary thrombocytopenia; E88.09 Other disorders of plasma-protein metabolism, not elsewhere classified; E87.1 Hypo-osmolality and hyponatremia; Z68.29 Body mass index [BMI] 29.0-29.9, adult; Z20.822 Contact with and (suspected) exposure to COVID-19; Z79.899 Other long term (current) drug therapy; Z87.19 Personal history of other diseases of the digestive system; D53.9 Nutritional anemia, unspecified; E03.9 Hypothyroidism, unspecified; E87.70 Fluid overload, unspecified; E83.42 Hypomagnesemia; Z79.890 Hormone replacement therapy; I10 Essential (primary) hypertension; Z86.79 Personal history of other diseases of the circulatory system
CPT/HCPCS: 36415; 76942-TC; 80048-TC; 80053-TC; 80076-TC; 82140-TC; 83735-TC; 83880; 84100-TC; 85025-TC; 85730-TC; 87081-TC; A4216; C9803; G0378; P9047